=== PATIENT | female | born 1970 | race Caucasian/White ===

== ENCOUNTER → 2021-12-08 09:57 | Outpatient (BNVA) | payer OTHER, SELFPAY | PROVIDERS: PCP Physician Assistant Medical; Visit Provider Psychiatry & Neurology Neurology | DX: G47.00 Insomnia, unspecified (principal); R51.9 Headache, unspecified; G89.29 Other chronic pain | CPT/HCPCS: 99212 ==

== ENCOUNTER 2022-12-06 15:10 | Inpatient (IN) | payer OTHER, SELFPAY ==
--- NOTE | ~2022-12-06 | XR_ITS ---
EXAMINATION: XR CHEST CLINICAL INFORMATION: Chest pain, shortness of breath COMPARISON: None TECHNIQUE: Portable view of the chest was obtained. 4:00 PM FINDINGS: No significant abnormality is noted involving the heart, lungs, mediastinum, bony thorax or soft tissues. XR/XR chest 1V IMPRESSION: No evidence for acute process.
--- NOTE | 2022-12-06 15:13 | ECG_ITS ---
Test Reason : tacardya Blood Pressure : / mmHG Vent. Rate : 114 BPM Atrial Rate : 114 BPM P-R Int : 144 ms QRS Dur : 070 ms QT Int : 340 ms P-R-T Axes : 026 -06 002 degrees QTc Int : 468 ms Sinus tachycardia Minimal voltage criteria for LVH, may be normal variant ( R in aVL ) Borderline ECG No previous ECGs available Referred By: Generic ED Physician Electronically Signed By:BRENNAN EPPERSON MD
[2022-12-06 15:39] VITALS: BP 143/99; PULSE 130; RESP 18; TEMP 36.4; O2SAT 97; BMI 30.7
--- NOTE | 2022-12-06 15:39 | ED_ITS ---
HPI - General Adult General Chief complaint: ETOH/Substance Use <RYAN Heller - Last Filed: 12/06/22 15:46> Stated complaint: sob,chest pain <RYAN Heller - Last Filed: 12/06/22 15:46> Time Seen by Provider: 12/06/22 16:21 <RYAN Heller - Last Filed: 12/06/22 15:46> Source: patient <Lori Pérez MD - Last Filed: 12/06/22 20:41> Mode of arrival: ambulatory <Lori Pérez MD - Last Filed: 12/06/22 20:41> Limitations: no limitations <Lori Pérez MD - Last Filed: 12/06/22 20:41> History of Present Illness HPI narrative: Patient comes in the emergency room complaining of alcohol withdrawal symptoms. Patient states that she feels very shaky, anxious. Patient states that she has tried multiple times to stop drinking alcohol, last time she drank was over 2 days ago. Patient states that she has never had seizures secondary to alcohol withdrawal. Patient states that she is trying to become sober. Patient states that in the past she has been sober for 15 months. However, in 2019, her son committed suicide and since then she has has been drinking heavily, but keeps trying to stop drinking. Patient states that she would like information regarding detox, but at this time she is not ready to go back to work. Patient has been out of work since mid September until now due to a knee injury/surgery. Patient is due to return to work in couple weeks. Additionally, patient complaining of chest palpitations, chest tightness, and anxiety. <Lori Pérez MD - Last Filed: 12/06/22 20:41> Related Data Home medications: Home Medications Medication Instructions Recorded Confirmed acamprosate 333 mg tablet,delayed 666 mg PO TID 12/08/21 release celecoxib 200 mg capsule 200 mg PO BID 12/08/21 cyanocobalamin (vitamin B-12) 1,000 mcg PO DAILY 12/08/21 1,000 mcg tablet escitalopram oxalate 20 mg tablet 20 mg PO DAILY 12/08/21 omeprazole 20 mg capsule,delayed 20 mg PO DAILY 12/08/21 release topiramate 25 mg tablet 25 mg PO BEDTIME 12/08/21 zolpidem 10 mg tablet 10 mg PO BEDTIME PRN 12/08/21 Previous Rx's Medication Instructions Recorded cyclobenzaprine 10 mg tablet 10 mg PO BEDTIME #30 tabs 12/08/21 <RYAN Heller - Last Filed: 12/06/22 15:46> Allergies/adverse reactions: Allergies Allergy/AdvReac Type Severity Reaction Status Date / Time No Known Allergies Allergy Verified 12/08/21 10:22 <RYAN Heller - Last Filed: 12/06/22 15:46> Review of Systems Review of Systems: Constitutional : No Weight loss, No Fever, No Chills, No Night Sweats, no fatigue, complaining of alcohol withdrawal symptoms, jittery ENT/Mouth : No Hearing loss, No Ear Pain, No Nasal Congestion, No Sinus Pain, No Hoarseness, No sore throat, No Rhinorrhea, No Swallowing Difficulty Eyes: No Eye Pain, No Swelling, No Redness, No Foreign Body, No Discharge, No Vision Changes Cardiovascular : Complaining of mild chills pressure, palpitation, no shortness of breath Respiratory : Complaining of Cough, No Sputum, No Wheezing, No Smoke Exposure, No Dyspnea Gastrointestinal : No Nausea, No Vomiting, No Diarrhea, No Constipation, No abdominal Pain, No Hematochezia, No Melena Genitourinary : no irregular bleeding, No Dysuria, No Urinary Frequency, No Hematuria, No Urinary Incontinence, No Urgency, No Flank Pain, No Urinary Flow Changes, No Hesitancy Musculoskeletal : No joint pain, No Myalgias, No Joint Swelling Skin : No Skin Lesions, No rash Neuro : No Weakness, No Numbness, No Paresthesias, No Loss of Consciousness, No Dizziness, No Headache Psych : No Anxiety/Panic, No Depression, No SI/HI/AH/VH, No Social Issues, Heme/Lymph: No Bruising, No Bleeding,No Lymphadenopathy Endocrine : No Polyuria, No Polydipsia, No Temperature Intolerance <Lori Pérez MD - Last Filed: 12/06/22 20:41> [facility] Past Medical History Medical History: Medical History (Updated 12/06/22 @ 20:41 by Lori Pérez MD) Alcohol abuse Anemia Anisocoria Anxiety Depression GERD (gastroesophageal reflux disease) Hyperlipidemia Prediabetes <RYAN Heller - Last Filed: 12/06/22 15:46> Surgical History: Surgical History H/O tubal ligation <RYAN Heller - Last Filed: 12/06/22 15:46> Family History Family History: Family History Father Cancer Mother Arthritis <RYAN Heller - Last Filed: 12/06/22 15:46> Social History Social History: Social History Alcohol intake: current Alcohol intake frequency: holidays/special occasions only Patient Tobacco Use Status: Never used Tobacco Advance Directives: Yes Advance Directives on File: Yes Advance Directives Date on File: 12/06/22 <RYAN Heller - Last Filed: 12/06/22 15:46> Physical Exam ED Vital Signs: Vital Signs - 24 hr 12/06/22 15:39 12/06/22 16:37 12/06/22 18:00 Temperature 97.5 F 97.7 F 99.2 F Pulse Rate 130 H 84 98 Respiratory Rate 18 16 16 Blood Pressure 143/99 H 136/91 H 128/78 Pulse Oximetry 97 93 99 Oxygen Delivery Method Room Air Nasal Cannula Room Air Oxygen Flow Rate 2 12/06/22 19:56 Temperature 99.9 F Pulse Rate 124 H Respiratory Rate 16 Blood Pressure 144/91 H Pulse Oximetry 98 Oxygen Delivery Method Room Air Oxygen Flow Rate BMI result Body Mass Index 30.7 <RYAN Heller - Last Filed: 12/06/22 15:46> Vital Signs - 24 hr 12/06/22 15:39 12/06/22 16:37 12/06/22 18:00 Temperature 97.5 F 97.7 F 99.2 F Pulse Rate 130 H 84 98 Respiratory Rate 18 16 16 Blood Pressure 143/99 H 136/91 H 128/78 Pulse Oximetry 97 93 99 Oxygen Delivery Method Room Air Nasal Cannula Room Air Oxygen Flow Rate 2 12/06/22 19:56 Temperature 99.9 F Pulse Rate 124 H Respiratory Rate 16 Blood Pressure 144/91 H Pulse Oximetry 98 Oxygen Delivery Method Room Air Oxygen Flow Rate BMI result Body Mass Index 30.7 <Lori Pérez MD - Last Filed: 12/06/22 20:41> Const Other: Appearance: Alert. Oriented X3. No acute distress. A bit jittery Eyes: Pupils equal, round and reactive to light. ENT: Pharynx normal. Neck: Normal inspection. Neck supple. No lymph nodes noted. No crepitus CVS: Regular rhythm, tachycardic in the 120-130s Pulses normal. Normal S1 and S2 Respiratory: No respiratory distress. Breath sounds normal. No Wheezing. No rales Abdomen: Soft and nontender. No rigidity. No distention. Skin: Skin warm and dry. Normal skin color. Normal skin turgor. Extremities: No lower extremity edema. No Lacerations. No Rash Neuro: Oriented X 3. No motor deficit. No sensory deficit. Moving all extremities. No slurred speech. CN 2 through 12 grossly intact Psych: calm, cooperative, normal affect <Lori Pérez MD - Last Filed: 12/06/22 20:41> Course Course Course Narrative: This is an RME: Additional HPI, ROS, PE not included below will be deferred to primary provider. This is a 52-year-old female presenting to the emergency department with chest pain, palpitations, shortness of breath, nausea, diaphoresis, anxiety telling me she has alcohol withdrawal, patient tells me she drinks 2/5 of vodka a day, last drink 2 days ago she tells me she is trying to stop drinking. Patient has history of DTs no hx of seizures or hallucinations. Denies drugs, tobacco. Denies SI and HI. Denies hallucinations. On exam patient noted to be tachycardic. CIWA 8 Will speak to charge to try to get patient a bed <RYAN Heller - Last Filed: 12/06/22 15:46> Medications Administered Discontinued Medications Generic Name Dose Route Start Last Admin Trade Name Freq PRN Reason Stop Dose Admin Sodium Chloride 1,000 mls @ 999 mls/hr 12/06/22 15:45 12/06/22 19:06 Ns IV 12/06/22 16:45 Infused .Q1H1M VELVET Infusion Lorazepam 2 mg 12/06/22 15:41 12/06/22 16:31 Lorazepam 1 Mg Tablet PO 12/06/22 15:42 2 mg ONCE ONE Administration <RYAN Heller - Last Filed: 12/06/22 15:46> Medications Administered Discontinued Medications Generic Name Dose Route Start Last Admin Trade Name Suyapa PRN Reason Stop Dose Admin Sodium Chloride 1,000 mls @ 999 mls/hr 12/06/22 15:45 12/06/22 19:06 Ns IV 12/06/22 16:45 Infused .Q1H1M VELVET Infusion Lorazepam 2 mg 12/06/22 15:41 12/06/22 16:31 Lorazepam 1 Mg Tablet PO 12/06/22 15:42 2 mg ONCE ONE Administration <Lori Pérez MD - Last Filed: 12/06/22 20:41> Medical Decision Making Medical Decision Making [facility] Narrative: -patient given 2 mg p.o. lorazepam, started fluids -care team/asset recovery specialist consult has been requested -of patient's labs are pending -patient continues being tachycardic, jittery despite Ativan. Patient is actively withdrawing from alcohol. No seizures in the emergency room. No history of seizures. Patient was started on phenobarbital protocol, patient being admitted, Dr. Tong the patient. <Lori Pérez MD - Last Filed: 12/06/22 20:41> Differential Diagnosis Differential Diagnoses: The differential diagnosis associated with the presentation includes (Alcohol withdrawal, polysubstance withdrawal) <Lori Pérez MD - Last Filed: 12/06/22 20:41> Admission/Observation Consideration of admission/observation: Escalation of care including admission/observation considered <Lori Pérez MD - Last Filed: 12/06/22 20:41> Consult Healthcare Provider Management of the patient was discussed with: Hospitalist <Lori Pérez MD - Last Filed: 12/06/22 20:41> Lab Data [facility] Lab Attestation statement: I reviewed the patient's lab results. <Lori Pérez MD - Last Filed: 12/06/22 20:41> Result Diagrams: 12/06/22 16:27 12/06/22 16:27 <RYAN Heller - Last Filed: 12/06/22 15:46> Labs: Lab Results 12/06/22 12/06/22 12/06/22 Range/Units 16:19 16:27 16:27 WBC 4.8 (4.8-10.8) X10*3/uL RBC 4.14 L (4.20-5.50) X10*6/uL Hgb 12.0 (12.0-16.0) g/dl Hct 36.6 L (37.0-47.0) % MCV 88.4 (80.0-98.0) fL MCH 29.0 (27.0-33.0) pg MCHC 32.8 (31.0-35.0) g/dl RDW 17.2 H (11.0-16.0) % Plt Count 197 (160-400) X10*3/uL MPV 10.4 (9.4-12.3) fL Immature Gran % (Auto) 0.4 (0.0-0.4) % Neut % (Auto) 68.9 (45-73) % Lymph % (Auto) 12.0 L (20-40) % [place] % (Auto) 18.3 H (2-11) % Eos % (Auto) 0.0 (0-4) % Baso % (Auto) 0.4 (0-2) % Lymph # (Auto) 0.6 L (1.2-4.9) X10*3/uL [place] # (Auto) 0.9 (0.1-1.2) X10*3/uL Eos # (Auto) 0.0 (0.0-0.4) X10*3/uL Baso # (Auto) 0.0 (0.0-0.2) X10*3/uL Abs Immat Gran (auto) 0.02 (0.00-0.03) X10*3/uL Absolute Neuts (auto) 3.3 (2.0-8.3) x10*3/uL Absolute Nucleated RBC 0.000 (0.0-0.012) X10*3/uL Nucleated RBC % (auto) 0.0 (0.0-0.2) /100WBC Sodium 135 (135-145) mmol/L Potassium 3.7 (3.3-5.1) mmol/L Chloride 98 (96-108) mmol/L Carbon Dioxide 21 L (22-29) mmol/L Anion Gap 20 (12-20) BUN 21 H (9-16) mg/dL Creatinine 0.87 (0.5-1.4) mg/dL Estim Creat Clear Calc 89.5 Estimated GFR > 60 Random Glucose 111 (60-115) mg/dL Calcium 9.2 (8.4-10.2) mg/dL Magnesium 1.6 (1.6-2.6) mg/dL Total Bilirubin 0.9 (0.0-1.0) mg/dL AST 185 H (5-31) U/L ALT 79 H (0-31) U/L Alkaline Phosphatase 92 (39-117) U/L Troponin I High Sens (<3.5-17.0) ng/L B-Natriuretic Peptide (<100) pg/mL Total Protein 7.6 (6.5-8.0) g/dL Albumin 4.4 (3.5-5.0) g/dL Ethyl Alcohol < 10 mg/dL COVID-19 (TOBI) Positive A (Negative) COVID-19 Clin Com See Note 12/06/22 12/06/22 Range/Units 16:27 16:27 WBC (4.8-10.8) X10*3/uL RBC (4.20-5.50) X10*6/uL Hgb (12.0-16.0) g/dl Hct (37.0-47.0) % MCV (80.0-98.0) fL MCH (27.0-33.0) pg MCHC (31.0-35.0) g/dl RDW (11.0-16.0) % Plt Count (160-400) X10*3/uL MPV (9.4-12.3) fL Immature Gran % (Auto) (0.0-0.4) % Neut % (Auto) (45-73) % Lymph % (Auto) (20-40) % [place] % (Auto) (2-11) % Eos % (Auto) (0-4) % Baso % (Auto) (0-2) % Lymph # (Auto) (1.2-4.9) X10*3/uL [place] # (Auto) (0.1-1.2) X10*3/uL Eos # (Auto) (0.0-0.4) X10*3/uL Baso # (Auto) (0.0-0.2) X10*3/uL Abs Immat Gran (auto) (0.00-0.03) X10*3/uL Absolute Neuts (auto) (2.0-8.3) x10*3/uL Absolute Nucleated RBC (0.0-0.012) X10*3/uL Nucleated RBC % (auto) (0.0-0.2) /100WBC Sodium (135-145) mmol/L Potassium (3.3-5.1) mmol/L Chloride (96-108) mmol/L Carbon Dioxide (22-29) mmol/L Anion Gap (12-20) BUN (9-16) mg/dL Creatinine (0.5-1.4) mg/dL Estim Creat Clear Calc Estimated GFR Random Glucose (60-115) mg/dL Calcium (8.4-10.2) mg/dL Magnesium (1.6-2.6) mg/dL Total Bilirubin (0.0-1.0) mg/dL AST (5-31) U/L ALT (0-31) U/L Alkaline Phosphatase (39-117) U/L Troponin I High Sens < 3.5 (<3.5-17.0) ng/L B-Natriuretic Peptide 28 (<100) pg/mL Total Protein (6.5-8.0) g/dL Albumin (3.5-5.0) g/dL Ethyl Alcohol mg/dL COVID-19 (TOBI) (Negative) COVID-19 Clin Com <RYAN Heller - Last Filed: 12/06/22 15:46> Lab Results 12/06/22 12/06/22 12/06/22 Range/Units 16:19 16:27 16:27 WBC 4.8 (4.8-10.8) X10*3/uL RBC 4.14 L (4.20-5.50) X10*6/uL Hgb 12.0 (12.0-16.0) g/dl Hct 36.6 L (37.0-47.0) % MCV 88.4 (80.0-98.0) fL MCH 29.0 (27.0-33.0) pg MCHC 32.8 (31.0-35.0) g/dl RDW 17.2 H (11.0-16.0) % Plt Count 197 (160-400) X10*3/uL MPV 10.4 (9.4-12.3) fL Immature Gran % (Auto) 0.4 (0.0-0.4) % Neut % (Auto) 68.9 (45-73) % Lymph % (Auto) 12.0 L (20-40) % [place] % (Auto) 18.3 H (2-11) % Eos % (Auto) 0.0 (0-4) % Baso % (Auto) 0.4 (0-2) % Lymph # (Auto) 0.6 L (1.2-4.9) X10*3/uL [place] # (Auto) 0.9 (0.1-1.2) X10*3/uL Eos # (Auto) 0.0 (0.0-0.4) X10*3/uL Baso # (Auto) 0.0 (0.0-0.2) X10*3/uL Abs Immat Gran (auto) 0.02 (0.00-0.03) X10*3/uL Absolute Neuts (auto) 3.3 (2.0-8.3) x10*3/uL Absolute Nucleated RBC 0.000 (0.0-0.012) X10*3/uL Nucleated RBC % (auto) 0.0 (0.0-0.2) /100WBC Sodium 135 (135-145) mmol/L Potassium 3.7 (3.3-5.1) mmol/L Chloride 98 (96-108) mmol/L Carbon Dioxide 21 L (22-29) mmol/L Anion Gap 20 (12-20) BUN 21 H (9-16) mg/dL Creatinine 0.87 (0.5-1.4) mg/dL Estim Creat Clear Calc 89.5 Estimated GFR > 60 Random Glucose 111 (60-115) mg/dL Calcium 9.2 (8.4-10.2) mg/dL Magnesium 1.6 (1.6-2.6) mg/dL Total Bilirubin 0.9 (0.0-1.0) mg/dL AST 185 H (5-31) U/L ALT 79 H (0-31) U/L Alkaline Phosphatase 92 (39-117) U/L Troponin I High Sens (<3.5-17.0) ng/L B-Natriuretic Peptide (<100) pg/mL Total Protein 7.6 (6.5-8.0) g/dL Albumin 4.4 (3.5-5.0) g/dL Ethyl Alcohol < 10 mg/dL COVID-19 (TOBI) Positive A (Negative) COVID-19 Clin Com See Note 12/06/22 12/06/22 Range/Units 16:27 16:27 WBC (4.8-10.8) X10*3/uL RBC (4.20-5.50) X10*6/uL Hgb (12.0-16.0) g/dl Hct (37.0-47.0) % MCV (80.0-98.0) fL MCH (27.0-33.0) pg MCHC (31.0-35.0) g/dl RDW (11.0-16.0) % Plt Count (160-400) X10*3/uL MPV (9.4-12.3) fL Immature Gran % (Auto) (0.0-0.4) % Neut % (Auto) (45-73) % Lymph % (Auto) (20-40) % [place] % (Auto) (2-11) % Eos % (Auto) (0-4) % Baso % (Auto) (0-2) % Lymph # (Auto) (1.2-4.9) X10*3/uL [place] # (Auto) (0.1-1.2) X10*3/uL Eos # (Auto) (0.0-0.4) X10*3/uL Baso # (Auto) (0.0-0.2) X10*3/uL Abs Immat Gran (auto) (0.00-0.03) X10*3/uL Absolute Neuts (auto) (2.0-8.3) x10*3/uL Absolute Nucleated RBC (0.0-0.012) X10*3/uL Nucleated RBC % (auto) (0.0-0.2) /100WBC Sodium (135-145) mmol/L Potassium (3.3-5.1) mmol/L Chloride (96-108) mmol/L Carbon Dioxide (22-29) mmol/L Anion Gap (12-20) BUN (9-16) mg/dL Creatinine (0.5-1.4) mg/dL Estim Creat Clear Calc Estimated GFR Random Glucose (60-115) mg/dL Calcium (8.4-10.2) mg/dL Magnesium (1.6-2.6) mg/dL Total Bilirubin (0.0-1.0) mg/dL AST (5-31) U/L ALT (0-31) U/L Alkaline Phosphatase (39-117) U/L Troponin I High Sens < 3.5 (<3.5-17.0) ng/L B-Natriuretic Peptide 28 (<100) pg/mL Total Protein (6.5-8.0) g/dL Albumin (3.5-5.0) g/dL Ethyl Alcohol mg/dL COVID-19 (TOBI) (Negative) COVID-19 Clin Com <Lori Pérez MD - Last Filed: 12/06/22 20:41> Critical Care Time Critical Care Time Critical Care Time: Yes <Lori Pérez MD - Last Filed: 12/06/22 20:41> Total Critical Care Time: 60 <Lori Pérez MD - Last Filed: 12/06/22 20:41> Attestation: I have personally provided critical care time. Time includes review of lab data, radiology results, discussion with consultants, and monitoring for potential decompensation. Intervention performed as documented. <Lori Pérez MD - Last Filed: 12/06/22 20:41> Discharge Plan Discharge Clinical Impression: Alcohol withdrawal <RYAN Heller - Last Filed: 12/06/22 15:46> Patient Disposition: Admitted As Inpatient <RYAN Heller - Last Filed: 12/06/22 15:46> Prescriptions: No Action cyanocobalamin (vitamin B-12) 1,000 mcg tablet 1,000 mcg PO DAILY escitalopram oxalate 20 mg tablet 20 mg PO DAILY zolpidem 10 mg tablet 10 mg PO BEDTIME PRN celecoxib 200 mg capsule 200 mg PO BID topiramate 25 mg tablet 25 mg PO BEDTIME acamprosate 333 mg tablet,delayed release (DR/EC) 666 mg PO TID omeprazole 20 mg capsule,delayed release(DR/EC) 20 mg PO DAILY cyclobenzaprine 10 mg tablet 10 mg PO BEDTIME Qty: 30 0RF <RYAN Heller - Last Filed: 12/06/22 15:46> Interventions: [place]-Suicide Risk Severity Scale Last Done: 12/06/22 16:33 <RYAN Heller - Last Filed: 12/06/22 15:46>
[2022-12-06] MEDS: 0.9 % Sodium Chloride 1,000 ML 999 ML IV (16:28)
[2022-12-06] MEDS: LORazepam 1 MG TABLET 2 MG PO (16:31)
[2022-12-06 16:35] LABS: MANUAL DIFF FLAG NO
[2022-12-06 16:37] VITALS: BP 136/91; PULSE 84; RESP 16; TEMP 36.5; O2SAT 93
[2022-12-06 16:37] LABS: Basophils Percent Auto 0.4 % (0-2); Hematocrit 36.6 % (37.0-47.0); Imm Gran Abs Auto 0.02 X10*3/uL (0.00-0.03); Imm Gran Pct Auto 0.4 % (0.0-0.4); Lymphocytes Absolute Auto 0.6 X10*3/uL (1.2-4.9); Mean Corpuscular HGB Conc 32.8 g/dl (31.0-35.0); Mean Corpuscular Volume 88.4 fL (80.0-98.0); Mean Platelet Volume 10.4 fL (9.4-12.3); Monocytes Absolute Auto 0.9 X10*3/uL (0.1-1.2); Monocytes Percent Auto 18.3 % (2-11); Neutrophils Absolute Auto 3.3 x10*3/uL (2.0-8.3); Neutrophils Percent Auto 68.9 % (45-73); Platelet Count 197 X10*3/uL (160-400); Red Blood Count 4.14 X10*6/uL (4.20-5.50); Red Cell Distribution Width 17.2 % (11.0-16.0); White Blood Count 4.8 X10*3/uL (4.8-10.8)
[2022-12-06 16:47] LABS: COVID-19 Test Positive (Negative); IDNOW Serial# 9DB6401D
[2022-12-06 16:57] LABS: Alanine Aminotransferase 79 U/L (0-31); Albumin Level 4.4 g/dL (3.5-5.0); Alkaline Phosphatase 92 U/L (39-117); Anion Gap 20 (12-20); Aspartate Amino Transferase 185 U/L (5-31); Bilirubin Total 0.9 mg/dL (0.0-1.0); Blood Urea Nitrogen 21 mg/dL (9-16); Calcium 9.2 mg/dL (8.4-10.2); Carbon Dioxide 21 mmol/L (22-29); Chloride 98 mmol/L (96-108); Creatinine Clr Calc Pharmacy 89.5; Estimated Glomerular Filt Rate > 60; Ethanol < 10 mg/dL; Glucose Random 111 mg/dL (60-115); Magnesium 1.6 mg/dL (1.6-2.6); Potassium 3.7 mmol/L (3.3-5.1); Sodium 135 mmol/L (135-145); Total Protein 7.6 g/dL (6.5-8.0)
[2022-12-06 17:04] LABS: B Type Natriuretic Peptide 28 pg/mL (<100)
[2022-12-06 17:11] LABS: Troponin-I High Sensitivity < 3.5 ng/L (<3.5-17.0)
[2022-12-06 18:00] VITALS: BP 128/78; PULSE 98; RESP 16; TEMP 37.3; O2SAT 99
--- NOTE | 2022-12-06 19:35 | PC.NURSE ---
Patient alert and oriented x 3. 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 Covid +.
[2022-12-06 19:56] VITALS: BP 144/91; PULSE 124; RESP 16; TEMP 37.7; O2SAT 98
[2022-12-06] MEDS: PHENobarbitaL sodium 130 MG/ML IM ONCE 306 MG IM (20:49)
[2022-12-06 21:04] VITALS: BP 151/90; PULSE 113; RESP 20; TEMP 37.2; O2SAT 99
[2022-12-06 21:12] LABS: Appearance Urine Clear; Color Urine Dark Yellow; Glucose Urine UA Negative (Negative); Leukocyte Esterase Urine Trace (Negative); Nitrite Urine Negative (Negative); PH 5.5 (5.0-9.0); Specific Gravity - Urine >= 1.030 (1.005-1.025); UMIC TRIGGER UACC YES; Urine Blood Negative (Negative); Urine Ketones 80 mg/dL (Negative); Urine Protein 30 (1+) mg/dL (Neg-Trace)
--- NOTE | 2022-12-06 21:14 | MHC.RECOVSUP ---
? Reason for consult:ETOH o? Current location:[id number]? o? Identified substance use concern:? -? Withdrawal -? Support ? Intervention: o? Community resources provided o? Harm reduction discussion ? Plan:Admitted ? Additional information:Rc met with pt and discussed ATS services/ Rc services. Pt is being admitted. [facility] provided recovery resources.
[2022-12-06 21:20] LABS: Bacteria Urine 1+ (None Seen); Hyaline Casts Urine 0-2 /LPF (0-2); WBC Urine 0-5 /HPF (0-5)
[2022-12-06 21:25] LABS: Amphetamine Screen Urine Not Detected (Not Detect); Barbiturates, Urine Not Detected (Not Detect); Benzodiazepines Screen Urine Not Detected (Not Detect); Cannabinoid Screen Urine Not Detected (Not Detect); Cocaine Screen Urine Not Detected (Not Detect); Fentanyl, urine Not Detected (Not Detect); Opiate Screen Urine Not Detected (Not Detect); Phencyclidine Screen Urine Not Detected (Not Detect)
[2022-12-06] MEDS: PHENobarbitaL sodium 130 MG/ML VIAL IM Q3Hx2 230 MG IM (23:38)
[2022-12-06 23:51] VITALS: BP 150/85; PULSE 105; RESP 16; TEMP 37.3; O2SAT 97
--- NOTE | 2022-12-06 23:56 | P.HPHOSP_ITS ---
History of Present Illness Date of Service: 12/06/22 Chief Complaint: alcohol withdrawal this is a 52-year-old female past medical history of alcohol abuse, anxiety depression, hyperlipidemia, GERD presents to the hospital with complaints of alcohol abuse presents to the hospital with complaints of alcohol withdrawal. Patient reports that she stopped drinking about a day ago, she is also complaining of cough, feeling generally unwell, no shortness of breath, reports fever, chills, nausea, no vomiting, no abdominal pain, no diarrhea constipation, no urinary symptoms and no lower extremity edema. On arrival to the ED patient found to have heart rate of 130, sinus rhythm with no other abnormal findings Labs are significant for WBC count 3.4, hemoglobin of 12.0, AST of 185, ALT 7, urine positive for leukocyte Estrace and some WBC, chest x-ray shows no evidence of acute process found to be COVID-19 positive Review of Systems Review of Systems: Yes all other systems are reviewed and are negative [facility] Medical History Alcohol abuse Anemia Anisocoria Anxiety Depression GERD (gastroesophageal reflux disease) Hyperlipidemia Prediabetes Family History Father Cancer Mother Arthritis Surgical History H/O tubal ligation Social History Alcohol intake: current Alcohol intake frequency: holidays/special occasions only Patient Tobacco Use Status: Never used Tobacco Advance Directives: Yes Advance Directives on File: Yes Advance Directives Date on File: 12/06/22 Nutrition Risks: No Nutritional Risk Meds Allergies Allergy/AdvReac Type Severity Reaction Status Date / Time No Known Allergies Allergy Verified 12/08/21 10:22 Active Medications: Current Medications Pharmacy Consult (Consult Rx Etoh Phenob Im/Po) 1 each MISCELLANE ONCE PRN; Protocol PRN Reason: Consult order Phenobarbital (Phenobarbital 15 Mg Tablet) 45 mg PO BID [facility]; Protocol Stop: 12/08/22 21:01 Phenobarbital (Phenobarbital 30 Mg Tablet) 30 mg PO BID [facility]; Protocol Stop: 12/10/22 21:01 Phenobarbital (Phenobarbital 30 Mg Tablet) 30 mg PO DAILY [facility]; Protocol Stop: 12/12/22 09:01 Phenobarbital Sodium (Phenobarbital Sodium 130 Mg/Ml Vial Im Q3hx2) 230 mg IM Q3H [facility]; Protocol Stop: 12/07/22 03:01 Last Admin: 12/06/22 23:38 Dose: 230 mg Home Medications Medication Instructions Recorded Confirmed Last Taken Type cyanocobalamin (vitamin B-12) 1,000 mcg PO DAILY 12/08/21 12/06/22 Unknown History 1,000 mcg tablet omeprazole 20 mg capsule,delayed 20 mg PO DAILY 12/08/21 12/06/22 Unknown History release zolpidem 10 mg tablet 10 mg PO BEDTIME PRN Insomnia 12/08/21 12/06/22 Unknown History folic acid 1 mg tablet 1 tab PO DAILY 12/06/22 12/06/22 Unknown History meloxicam 15 mg tablet 1 tab PO DAILY 12/06/22 12/06/22 Unknown History thiamine HCl (vitamin B1) 100 mg 1 tab PO DAILY 12/06/22 12/06/22 Unknown History tablet Physical Exam Vital Signs and Narrative: Vital Signs: Last Vital Signs Temp 99.2 F 12/06/22 23:51 Pulse 105 H 12/06/22 23:51 Resp 16 12/06/22 23:51 BP 150/85 H 12/06/22 23:51 Pulse Ox 97 12/06/22 23:51 O2 Del Method 12/06/22 23:51 O2 Flow Rate 2 12/06/22 16:37 BMI result Body Mass Index 30.7 Const: General: cooperative and no acute distress Orientation/consciousness: patient oriented x3 Eyes: General: appearance normal, both eyes and all related structures Resp: Effort & Inspection: normal respiratory effort Auscultation: clear to auscultation bilaterally Cardio: Rate: regular rate Rhythm: regular rhythm GI: Palpation (GI): Soft to palpation Auscultation: normal bowel sounds Skin: General skin exam: no rashes or lesions noted Neuro: General: patient oriented x3 Cognition (Neuro): normal cognition Extrem: General: Yes normal to inspection and Yes no pedal edema Results Labs 12/06/22 16:27 12/06/22 16:27 Labs: Laboratory Results - last 24 hr 12/06/22 12/06/22 12/06/22 16:19 16:27 16:27 MCV 88.4 MCH 29.0 MCHC 32.8 RDW 17.2 H Plt Count 197 MPV 10.4 Immature Gran % (Auto) 0.4 Neut % (Auto) 68.9 Lymph % (Auto) 12.0 L [place] % (Auto) 18.3 H Eos % (Auto) 0.0 Baso % (Auto) 0.4 Lymph # (Auto) 0.6 L [place] # (Auto) 0.9 Eos # (Auto) 0.0 Baso # (Auto) 0.0 Abs Immat Gran (auto) 0.02 Absolute Neuts (auto) 3.3 Absolute Nucleated RBC 0.000 Nucleated RBC % (auto) 0.0 Anion Gap 20 Estim Creat Clear Calc 89.5 Estimated GFR > 60 Random Glucose 111 Calcium 9.2 Magnesium 1.6 Total Bilirubin 0.9 AST 185 H ALT 79 H Alkaline Phosphatase 92 Troponin I High Sens B-Natriuretic Peptide Total Protein 7.6 Albumin 4.4 Urine Color Urine Appearance Urine pH Ur Specific [place] Urine Protein Urine Glucose (UA) Urine Ketones Urine Blood Urine Nitrite Ur Leukocyte Esterase Urine RBC Urine WBC Ur Squamous Epith Cells Urine Bacteria Hyaline Casts Urine Opiates Screen Urine Fentanyl Screen Ur Barbiturates Screen Ur Phencyclidine Scrn Ur Amphetamines Screen U Benzodiazepines Scrn Urine Cocaine Screen U Marijuana (THC) Screen Ethyl Alcohol < 10 COVID-19 (TOBI) Positive A COVID-19 Clin Com See Note 12/06/22 12/06/22 12/06/22 16:27 16:27 21:07 MCV MCH MCHC RDW Plt Count MPV Immature Gran % (Auto) Neut % (Auto) Lymph % (Auto) [place] % (Auto) Eos % (Auto) Baso % (Auto) Lymph # (Auto) [place] # (Auto) Eos # (Auto) Baso # (Auto) Abs Immat Gran (auto) Absolute Neuts (auto) Absolute Nucleated RBC Nucleated RBC % (auto) Anion Gap Estim Creat Clear Calc Estimated GFR Random Glucose Calcium Magnesium Total Bilirubin AST ALT Alkaline Phosphatase Troponin I High Sens < 3.5 B-Natriuretic Peptide 28 Total Protein Albumin Urine Color Dark Yellow Urine Appearance Clear Urine pH 5.5 Ur Specific [place] >= 1.030 H Urine Protein 30 (1+) H Urine Glucose (UA) Negative Urine Ketones 80 Urine Blood Negative Urine Nitrite Negative Ur Leukocyte Esterase Trace H Urine RBC 6-10 H Urine WBC 0-5 Ur Squamous Epith Cells 3-5 Urine Bacteria 1+ Hyaline Casts 0-2 Urine Opiates Screen Urine Fentanyl Screen Ur Barbiturates Screen Ur Phencyclidine Scrn Ur Amphetamines Screen U Benzodiazepines Scrn Urine Cocaine Screen U Marijuana (THC) Screen Ethyl Alcohol COVID-19 (TOBI) COVID-19 [email or web address] Com 12/06/22 21:07 MCV MCH MCHC RDW Plt Count MPV Immature Gran % (Auto) Neut % (Auto) Lymph % (Auto) [place] % (Auto) Eos % (Auto) Baso % (Auto) Lymph # (Auto) [place] # (Auto) Eos # (Auto) Baso # (Auto) Abs Immat Gran (auto) Absolute Neuts (auto) Absolute Nucleated RBC Nucleated RBC % (auto) Anion Gap Estim Creat Clear Calc Estimated GFR Random Glucose Calcium Magnesium Total Bilirubin AST ALT Alkaline Phosphatase Troponin I High Sens B-Natriuretic Peptide Total Protein Albumin Urine Color Urine Appearance Urine pH Ur Specific [place] Urine Protein Urine Glucose (UA) Urine Ketones Urine Blood Urine Nitrite Ur Leukocyte Esterase Urine RBC Urine WBC Ur Squamous Epith Cells Urine Bacteria Hyaline Casts Urine Opiates Screen Not Detected Urine Fentanyl Screen Not Detected Ur Barbiturates Screen Not Detected Ur Phencyclidine Scrn Not Detected Ur Amphetamines Screen Not Detected U Benzodiazepines Scrn Not Detected Urine Cocaine Screen Not Detected U Marijuana (THC) Screen Not Detected Ethyl Alcohol COVID-19 (TOBI) COVID-19 Clin Com Imaging Radiologist's Impressions: Impressions Chest X-Ray 12/06/22 15:57 IMPRESSION: No evidence for acute process. Assessment and Plan (1) Alcohol withdrawal: Status: Acute (2) Alcohol abuse: Status: Acute (3) COVID-19 virus infection: Status: Acute Plan 52-year-old female with past medical history of alcohol abuse presents the hospital cough withdrawal. # Alcohol abuse With alcohol withdrawal - will treat with phenobarb protocol - thiamine and folic acid - monitor respiratory status - consult care team # COVID-19 infection - generalized weakness, no hypoxia - symptomatic treatment DVT prophylaxis: Lovenox Time Spent With Patient Time: Total time managing care of this patient today ____ minutes. Quality Stroke Does the patient have a stroke diagnosis?: No VTE Prior VTE?: No VTE Risk Level:: Medical - moderate - high VTE Device Contraindication: Treatment Not Indicated VTE Drug Contraindication: N/A - Med Ordered
[2022-12-07] VITALS (8 sets, daily range): BP systolic 118–149; BP diastolic 73–97; PULSE 76–130; RESP 16–22; TEMP 36.9–37.9; O2SAT 95–97
[2022-12-07] MEDS: Zolpidem Tartrate 5 MG TABLET PO (01:00)
[2022-12-07] MEDS: Enoxaparin Sodium 40 MG/0.4 ML SYRINGE SUBCUT (01:00)
[2022-12-07] MEDS: 0.9 % Sodium Chloride Flush 3 ML SYRINGE IVFLUSH ×3 (01:03→17:54)
--- NOTE | 2022-12-07 02:43 | PC.NURSE ---
Patient alert and oriented x 3. independent. Patient c/o hasn't slept in [address] Paz ordered ambien 5mg po for sleep. Patient on a phenobarb taper for CIWA. Patient denies any pain, sob, and dizziness. tele: sinus rythym. Patient wants help to detox and stop drinking.
--- NOTE | 2022-12-07 02:58 | PC.NURSE ---
report received from Angela hernadez
[2022-12-07] MEDS: PHENobarbitaL sodium 130 MG/ML VIAL IM Q3Hx2 230 MG IM (05:26)
[2022-12-07 06:44] LABS: Basophils Percent Auto 0.6 % (0-2); Eosinophils Percent Auto 0.3 % (0-4); Hematocrit 33.8 % (37.0-47.0); Hemoglobin 11.1 g/dl (12.0-16.0); Imm Gran Abs Auto 0.02 X10*3/uL (0.00-0.03); Imm Gran Pct Auto 0.6 % (0.0-0.4); Lymphocytes Absolute Auto 0.9 X10*3/uL (1.2-4.9); Lymphocytes Percent Auto 26.9 % (20-40); MANUAL DIFF FLAG SCAN; Mean Corpuscular HGB Conc 32.8 g/dl (31.0-35.0); Mean Corpuscular Hemoglobin 29.6 pg (27.0-33.0); Mean Corpuscular Volume 90.1 fL (80.0-98.0); Mean Platelet Volume 10.7 fL (9.4-12.3); Monocytes Absolute Auto 0.8 X10*3/uL (0.1-1.2); Monocytes Percent Auto 23.7 % (2-11); Neutrophils Absolute Auto 1.6 x10*3/uL (2.0-8.3); Neutrophils Percent Auto 47.9 % (45-73); Platelet Count 157 X10*3/uL (160-400); Red Blood Count 3.75 X10*6/uL (4.20-5.50); Red Cell Distribution Width 17.1 % (11.0-16.0); SCAN SMEAR FLAG 1; White Blood Count 3.4 X10*3/uL (4.8-10.8)
[2022-12-07 06:52] LABS: Anion Gap 16 (12-20); Blood Urea Nitrogen 17 mg/dL (9-16); Calcium 8.7 mg/dL (8.4-10.2); Carbon Dioxide 22 mmol/L (22-29); Chloride 103 mmol/L (96-108); Creatinine Clr Calc Pharmacy 103.8; Estimated Glomerular Filt Rate > 60; Glucose Random 96 mg/dL (60-115); Potassium 3.9 mmol/L (3.3-5.1); Sodium 137 mmol/L (135-145)
[2022-12-07 07:24] LABS: SLIDE REVIEW VERIFIED
[2022-12-07] MEDS: Thiamine HCL 100 MG TABLET PO (08:45)
[2022-12-07] MEDS: Folic Acid 1 MG TABLET PO (08:45)
[2022-12-07] MEDS: PHENobarbitaL 15 MG TABLET 45 MG PO ×2 (08:45→20:08)
--- NOTE | 2022-12-07 08:51 | PC.NURSE ---
Pt alert and oriented, resp even and unlabored. Sinus tach on monitor in 130's. Medicated per the DEC. Pt denies any pain, only reporting a cough at this time. Awaiting bed assignment.
--- NOTE | 2022-12-07 09:55 | P.PNIM_ITS ---
Subjective Subjective Date of Service: 12/07/22 Interval History: seen in follow-up for alcohol withdrawal and then seeking detox. She tells me that she drink rather heavily, she presently has tremors, tachycardia to up to 130 no psychomotor agitation Review of Systems tremors Physical Exam Vital Signs: Vital Signs: Last Vital Signs Temp 99.1 F 12/07/22 08:48 Pulse 130 H 12/07/22 08:48 Resp 16 12/07/22 08:48 BP 141/79 H 12/07/22 08:48 Pulse Ox 96 12/07/22 08:48 O2 Del Method 12/07/22 08:48 O2 Flow Rate 2 12/06/22 16:37 BMI result Body Mass Index 30.7 Const: Other: Appearance: Alert. Oriented X3. No acute distress. A bit jittery CVS: Regular rhythm, tachycardic in the 120-130s Pulses normal. Normal S1 and S2 Respiratory: No respiratory distress. Breath sounds normal. No Wheezing. No rales Abdomen: Soft and nontender. No rigidity. No distention. Skin: Skin warm and dry. Normal skin color. Normal skin turgor. Extremities: No lower extremity edema. No Lacerations. No Rash Neuro: Oriented X 3. No motor deficit. tremors in hands Psych: calm, cooperative, normal affect Objective Data Active Medications Acetaminophen (Acetaminophen 325 Mg Tablet) 650 mg PO Q6H PRN PRN Reason: Pain, Mild (Pain Scale 1-3) Enoxaparin Sodium (Enoxaparin Sodium 40 Mg/0.4 Ml Syringe) 40 mg SUBCUT Q24H [facility] Last Admin: 12/07/22 01:00 Dose: 40 mg Documented By: ESTRADA Folic Acid (Folic Acid 1 Mg Tablet) 1 mg PO DAILY [facility] Last Admin: 12/07/22 08:45 Dose: 1 mg Documented By: LYNDA Ondansetron HCl (Ondansetron Hcl 4 Mg/2 Ml Vial) 4 mg IVPUSH Q8H PRN PRN Reason: Nausea and Vomiting Pharmacy Consult (Consult Rx Etoh Phenob Im/Po) 1 each MISCELLANE ONCE PRN; Protocol PRN Reason: Consult order Phenobarbital (Phenobarbital 15 Mg Tablet) 45 mg PO BID [facility]; Protocol Stop: 12/08/22 21:01 Last Admin: 12/07/22 08:45 Dose: 45 mg Documented By: LYNDA Phenobarbital (Phenobarbital 30 Mg Tablet) 30 mg PO BID [facility]; Protocol Stop: 12/10/22 21:01 Phenobarbital (Phenobarbital 30 Mg Tablet) 30 mg PO DAILY [facility]; Protocol Stop: 12/12/22 09:01 Sodium Chloride (0.9 % Sodium Chloride Flush 3 Ml Syringe) 3 ml IVFLUSH QSHIFT [facility] Last Admin: 12/07/22 08:47 Dose: 3 ml Documented By: LYNDA Thiamine HCl (Thiamine Hcl 100 Mg Tablet) 100 mg PO DAILY [facility] Last Admin: 12/07/22 08:45 Dose: 100 mg Documented By: LYNDA Zolpidem Tartrate (Zolpidem Tartrate 5 Mg Tablet) 5 mg PO BEDTIME PRN PRN Reason: Insomnia Last Admin: 12/07/22 01:00 Dose: 5 mg Documented By: ESTRADA Labs 12/07/22 05:54 12/07/22 05:54 Labs: Laboratory Results - last 24 hr 12/06/22 12/06/22 12/06/22 16:19 16:27 16:27 MCV 88.4 MCH 29.0 MCHC 32.8 RDW 17.2 H Plt Count 197 MPV 10.4 Immature Gran % (Auto) 0.4 Neut % (Auto) 68.9 Lymph % (Auto) 12.0 L [place] % (Auto) 18.3 H Eos % (Auto) 0.0 Baso % (Auto) 0.4 Lymph # (Auto) 0.6 L [place] # (Auto) 0.9 Eos # (Auto) 0.0 Baso # (Auto) 0.0 Abs Immat Gran (auto) 0.02 Absolute Neuts (auto) 3.3 Absolute Nucleated RBC 0.000 Nucleated RBC % (auto) 0.0 Smear Tech's Comments Anion Gap 20 Estim Creat Clear Calc 89.5 Estimated GFR > 60 Random Glucose 111 Calcium 9.2 Magnesium 1.6 Total Bilirubin 0.9 AST 185 H ALT 79 H Alkaline Phosphatase 92 Troponin I High Sens B-Natriuretic Peptide Total Protein 7.6 Albumin 4.4 Urine Color Urine Appearance Urine pH Ur Specific [place] Urine Protein Urine Glucose (UA) Urine Ketones Urine Blood Urine Nitrite Ur Leukocyte Esterase Urine RBC Urine WBC Ur Squamous Epith Cells Urine Bacteria Hyaline Casts Urine Opiates Screen Urine Fentanyl Screen Ur Barbiturates Screen Ur Phencyclidine Scrn Ur Amphetamines Screen U Benzodiazepines Scrn Urine Cocaine Screen U Marijuana (THC) Screen Ethyl Alcohol < 10 COVID-19 (TOBI) Positive A COVID-19 Clin Com See Note 12/06/22 12/06/22 12/06/22 16:27 16:27 21:07 MCV MCH MCHC RDW Plt Count MPV Immature Gran % (Auto) Neut % (Auto) Lymph % (Auto) [place] % (Auto) Eos % (Auto) Baso % (Auto) Lymph # (Auto) [place] # (Auto) Eos # (Auto) Baso # (Auto) Abs Immat Gran (auto) Absolute Neuts (auto) Absolute Nucleated RBC Nucleated RBC % (auto) Smear Tech's Comments Anion Gap Estim Creat Clear Calc Estimated GFR Random Glucose Calcium Magnesium Total Bilirubin AST ALT Alkaline Phosphatase Troponin I High Sens < 3.5 B-Natriuretic Peptide 28 Total Protein Albumin Urine Color Dark Yellow Urine Appearance Clear Urine pH 5.5 Ur Specific [place] >= 1.030 H Urine Protein 30 (1+) H Urine Glucose (UA) Negative Urine Ketones 80 Urine Blood Negative Urine Nitrite Negative Ur Leukocyte Esterase Trace H Urine RBC 6-10 H Urine WBC 0-5 Ur Squamous Epith Cells 3-5 Urine Bacteria 1+ Hyaline Casts 0-2 Urine Opiates Screen Urine Fentanyl Screen Ur Barbiturates Screen Ur Phencyclidine Scrn Ur Amphetamines Screen U Benzodiazepines Scrn Urine Cocaine Screen U Marijuana (THC) Screen Ethyl Alcohol COVID-19 (TOBI) COVID-19 Clin Com 12/06/22 12/07/22 12/07/22 21:07 05:54 05:54 MCV 90.1 MCH 29.6 MCHC 32.8 RDW 17.1 H Plt Count 157 L MPV 10.7 Immature Gran % (Auto) 0.6 H Neut % (Auto) 47.9 Lymph % (Auto) 26.9 [place] % (Auto) 23.7 H Eos % (Auto) 0.3 Baso % (Auto) 0.6 Lymph # (Auto) 0.9 L [place] # (Auto) 0.8 Eos # (Auto) 0.0 Baso # (Auto) 0.0 Abs Immat Gran (auto) 0.02 Absolute Neuts (auto) 1.6 L Absolute Nucleated RBC 0.000 Nucleated RBC % (auto) 0.0 Smear Tech's Comments VERIFIED Anion Gap 16 Estim Creat Clear Calc 103.8 Estimated GFR > 60 Random Glucose 96 Calcium 8.7 Magnesium Total Bilirubin AST ALT Alkaline Phosphatase Troponin I High Sens B-Natriuretic Peptide Total Protein Albumin Urine Color Urine Appearance Urine pH Ur Specific [place] Urine Protein Urine Glucose (UA) Urine Ketones Urine Blood Urine Nitrite Ur Leukocyte Esterase Urine RBC Urine WBC Ur Squamous Epith Cells Urine Bacteria Hyaline Casts Urine Opiates Screen Not Detected Urine Fentanyl Screen Not Detected Ur Barbiturates Screen Not Detected Ur Phencyclidine Scrn Not Detected Ur Amphetamines Screen Not Detected U Benzodiazepines Scrn Not Detected Urine Cocaine Screen Not Detected U Marijuana (THC) Screen Not Detected Ethyl Alcohol COVID-19 (TOBI) COVID-19 Clin Com Assessment and Plan (1) COVID-19 virus infection: Status: Acute (2) Alcohol withdrawal: Status: Acute Plan 52-year-old female with past medical history of alcohol abuse presents the hospital cough withdrawal. # Alcohol use disorder With alcohol withdrawal -treat with phenobarb protocol - thiamine and folic acid - monitor respiratory status - consult care team # COVID-19 infection - generalized weakness, no hypoxia - symptomatic treatment DVT prophylaxis: Lovenox need for inpatient: Ongoing treatment with alcohol withdrawal and monitoring for response given ongoing tachycardia and tremors this can all be managed in less acute setting. Time Spent With Patient Time: Total time managing care of this patient today ____ minutes. Quality Stroke Does the patient have a stroke diagnosis?: No VTE Prior VTE?: No VTE Risk Level:: Medical - moderate - high VTE Device Contraindication: Treatment Not Indicated VTE Drug Contraindication: N/A - Med Ordered
--- NOTE | 2022-12-07 12:43 | MHC.CM.PN ---
pt has covid lives with hhusband is covid vax x 3 has own ride home plan home no servceis
[2022-12-07] MEDS: Cyanocobalamin (Vitamin B-12) 1,000 MCG TABLET 1000 MCG PO (13:06)
[2022-12-07] MEDS: Omeprazole 20 MG CAPSULE.DR PO (13:07)
--- NOTE | 2022-12-07 13:34 | PC.NURSE ---
Alert and oriented, resp even and unlabored. Continues to rest quietly in bed with call light in place. Pt denies any pain or discomfort at this time. Awaiting bed assignment.
[2022-12-07] MEDS: guaiFENesin 100 MG/5 ML LIQUID PO (20:21)
--- NOTE | 2022-12-07 21:25 | PC.NURSE ---
Bedside report given to RN. PT in room 476, transported by transporter and this senior writer.
[2022-12-08] MEDS: Zolpidem Tartrate 5 MG TABLET 10 MG PO ×2 (00:29→22:21)
[2022-12-08] MEDS: Enoxaparin Sodium 40 MG/0.4 ML SYRINGE SUBCUT (00:29)
[2022-12-08] MEDS: 0.9 % Sodium Chloride Flush 3 ML SYRINGE IVFLUSH ×3 (00:30→16:04)
[2022-12-08 04:00] VITALS: BP 144/79; PULSE 101; RESP 20; TEMP 37.1; O2SAT 98
[2022-12-08 08:00] VITALS: BP 124/75; PULSE 95; RESP 20; TEMP 36.7; O2SAT 96
[2022-12-08] MEDS: PHENobarbitaL 15 MG TABLET 45 MG PO ×2 (08:51→20:03)
[2022-12-08] MEDS: Folic Acid 1 MG TABLET PO (08:51)
[2022-12-08] MEDS: Thiamine HCL 100 MG TABLET PO (08:51)
[2022-12-08] MEDS: guaiFENesin 100 MG/5 ML LIQUID PO (09:03)
[2022-12-08] MEDS: Cyanocobalamin (Vitamin B-12) 1,000 MCG TABLET 1000 MCG PO (09:03)
--- NOTE | 2022-12-08 09:22 | P.PNIM_ITS ---
Subjective Subjective Date of Service: 12/08/22 Interval History: seen in follow-up for alcohol withdrawal and then seeking detox. calm, no tremors Review of Systems tremors Physical Exam Const: Other: Appearance: Alert. Oriented X3. No acute distress. A bit jittery CVS: Regular rhythm, tachycardic in the 120-130s Pulses normal. Normal S1 and S2 Respiratory: No respiratory distress. Breath sounds normal. No Wheezing. No rales Abdomen: Soft and nontender. No rigidity. No distention. Skin: Skin warm and dry. Normal skin color. Normal skin turgor. Extremities: No lower extremity edema. No Lacerations. No Rash Neuro: Oriented X 3. No motor deficit. tremors in hands Psych: calm, cooperative, normal affect Objective Data Active Medications Acetaminophen (Acetaminophen 325 Mg Tablet) 650 mg PO Q6H PRN PRN Reason: Pain, Mild (Pain Scale 1-3) Cyanocobalamin (Cyanocobalamin (Vitamin B-12) 1,000 Mcg Tablet) 1,000 mcg PO DAILY [facility] Last Admin: 12/09/22 08:42 Dose: 1,000 mcg Documented By: WISAM Enoxaparin Sodium (Enoxaparin Sodium 40 Mg/0.4 Ml Syringe) 40 mg SUBCUT Q24H [facility] Last Admin: 12/09/22 00:44 Dose: 40 mg Documented By: DONITA Folic Acid (Folic Acid 1 Mg Tablet) 1 mg PO DAILY [facility] Last Admin: 12/09/22 08:42 Dose: 1 mg Documented By: WISAM Guaifenesin (Guaifenesin 100 Mg/5 Ml Liquid) 5 ml PO Q4H PRN PRN Reason: Cough Last Admin: 12/08/22 09:03 Dose: 5 ml Documented By: ALEX Omeprazole (Omeprazole 20 Mg Capsule.) 20 mg PO DAILY@0630 [facility] Last Admin: 12/09/22 06:17 Dose: 20 mg Documented By: DONITA Ondansetron HCl (Ondansetron Hcl 4 Mg/2 Ml Vial) 4 mg IVPUSH Q8H PRN PRN Reason: Nausea and Vomiting Pharmacy Consult (Consult Rx Etoh Phenob Im/Po) 1 each MISCELLANE ONCE PRN; Protocol PRN Reason: Consult order Phenobarbital (Phenobarbital 30 Mg Tablet) 30 mg PO BID [facility]; Protocol Stop: 12/10/22 21:01 Last Admin: 12/09/22 08:42 Dose: 30 mg Documented By: WISAM Phenobarbital (Phenobarbital 30 Mg Tablet) 30 mg PO DAILY [facility]; Protocol Stop: 12/12/22 09:01 Sodium Chloride (0.9 % Sodium Chloride Flush 3 Ml Syringe) 3 ml IVFLUSH QSHIFT [facility] Last Admin: 12/09/22 08:42 Dose: 3 ml Documented By: WISAM Thiamine HCl (Thiamine Hcl 100 Mg Tablet) 100 mg PO DAILY [facility] Last Admin: 12/09/22 08:42 Dose: 100 mg Documented By: WISAM Zolpidem Tartrate (Zolpidem Tartrate 5 Mg Tablet) 5 mg PO BEDTIME PRN PRN Reason: Insomnia Last Admin: 12/07/22 01:00 Dose: 5 mg Documented By: ESTRADA Zolpidem Tartrate (Zolpidem Tartrate 5 Mg Tablet) 10 mg PO BEDTIME PRN PRN Reason: Insomnia Last Admin: 12/08/22 22:21 Dose: 10 mg Documented By: NIA Labs 12/09/22 01:16 12/09/22 01:16 Labs: Laboratory Results - last 24 hr 12/09/22 12/09/22 01:16 01:16 MCV 89.6 MCH 29.5 MCHC 33.0 RDW 16.9 H Plt Count 163 MPV 10.8 Immature Gran % (Auto) 0.3 Neut % (Auto) 37.4 L Lymph % (Auto) 42.0 H [place] % (Auto) 18.0 H Eos % (Auto) 2.0 Baso % (Auto) 0.3 Lymph # (Auto) 1.5 [place] # (Auto) 0.6 Eos # (Auto) 0.1 Baso # (Auto) 0.0 Abs Immat Gran (auto) 0.01 Absolute Neuts (auto) 1.3 L Absolute Nucleated RBC 0.000 Nucleated RBC % (auto) 0.0 Anion Gap 15 Estim Creat Clear Calc 103.8 Estimated GFR > 60 Random Glucose 144 H Calcium 8.4 Assessment and Plan (1) Alcohol withdrawal: Status: Acute Plan 52-year-old female with past medical history of alcohol abuse presents the hospital cough withdrawal. # Alcohol use disorder With alcohol withdrawal -treat with phenobarb protocol - thiamine and folic acid - monitor respiratory status - consult care team for help staying abstinent # COVID-19 infection - generalized weakness, no hypoxia - symptomatic treatment DVT prophylaxis: Lovenox need for inpatient: Ongoing treatment with alcohol withdrawal and monitoring for response given ongoing tachycardia and tremors this can all be managed in less acute setting. late entry note for 12/08 Time Spent With Patient Time: Total time managing care of this patient today ____ minutes. Quality Stroke Does the patient have a stroke diagnosis?: No VTE Prior VTE?: No VTE Risk Level:: Medical - moderate - high VTE Device Contraindication: Treatment Not Indicated VTE Drug Contraindication: N/A - Med Ordered
[2022-12-08 15:24] VITALS: BP 120/75; PULSE 102; RESP 18; TEMP 36.7; O2SAT 93
--- NOTE | 2022-12-08 15:33 | MHC.RECOVRN ---
This proposal writer met w/ patient, after addiction consult was placed. Patient was alert, laying in bed, watching t.v. Patient reports currently feeling better, some anxiety, difficulty sleeping, overall decrease in withdrawal symptoms. Patient reports has been drinking for many years. Patient states when living in [place], drank primarily on the weekends. Patient reports increased stressors in family, oldest child , and son incarcerated in 2018, led to increased drinking. Patient reports in May 2020-July 2021, period of recovery. Patient reports went through Detox, CSS, TSS levels of care via [facility] in [place] during that 15 months of recovery. Patient reports recent reoccurrence had increased drinking to daily. Patient reports [employer] had experienced withdrawal symptoms like the patient had not experienced in the past. Patient states in the past had tried Vivitrol and Campral. Patient reports did not find Vivitrol helpful. Recovery resources reviewed. Discussed making appt at [facility] for f/u with recovery supports and Campral rx. Appt made for 12/14/22 @ 2:45pm.
[2022-12-08 20:00] VITALS: BP 116/86; PULSE 89; RESP 18; TEMP 37.1; O2SAT 98
[2022-12-09] MEDS: 0.9 % Sodium Chloride Flush 3 ML SYRINGE IVFLUSH ×2 (00:44→08:42)
[2022-12-09] MEDS: Enoxaparin Sodium 40 MG/0.4 ML SYRINGE SUBCUT (00:44)
[2022-12-09 01:25] LABS: MANUAL DIFF FLAG NO
[2022-12-09 01:33] LABS: Basophils Percent Auto 0.3 % (0-2); Eosinophils Absolute Auto 0.1 X10*3/uL (0.0-0.4); Hematocrit 36.1 % (37.0-47.0); Hemoglobin 11.9 g/dl (12.0-16.0); Imm Gran Abs Auto 0.01 X10*3/uL (0.00-0.03); Imm Gran Pct Auto 0.3 % (0.0-0.4); Lymphocytes Absolute Auto 1.5 X10*3/uL (1.2-4.9); Mean Corpuscular Hemoglobin 29.5 pg (27.0-33.0); Mean Corpuscular Volume 89.6 fL (80.0-98.0); Mean Platelet Volume 10.8 fL (9.4-12.3); Monocytes Absolute Auto 0.6 X10*3/uL (0.1-1.2); Neutrophils Absolute Auto 1.3 x10*3/uL (2.0-8.3); Neutrophils Percent Auto 37.4 % (45-73); Platelet Count 163 X10*3/uL (160-400); Red Blood Count 4.03 X10*6/uL (4.20-5.50); Red Cell Distribution Width 16.9 % (11.0-16.0); White Blood Count 3.5 X10*3/uL (4.8-10.8)
[2022-12-09 01:42] LABS: Anion Gap 15 (12-20); Blood Urea Nitrogen 15 mg/dL (9-16); Calcium 8.4 mg/dL (8.4-10.2); Carbon Dioxide 26 mmol/L (22-29); Chloride 100 mmol/L (96-108); Creatinine Clr Calc Pharmacy 103.8; Estimated Glomerular Filt Rate > 60; Glucose Random 144 mg/dL (60-115); Sodium 137 mmol/L (135-145)
[2022-12-09 04:00] VITALS: BP 132/81; PULSE 75; RESP 20; TEMP 37; O2SAT 96
[2022-12-09] MEDS: Omeprazole 20 MG CAPSULE.DR PO (06:17)
[2022-12-09 07:16] VITALS: BP 104/67; PULSE 95; RESP 12; TEMP 36.8; O2SAT 97
--- NOTE | 2022-12-09 08:19 | PM.DS ---
DS: Providers Provider Date of Service: 12/08/22 Date of admission: 12/06/22 23:54 Primary care physician: RYAN Ferrer Consults: 12/06/22 16:29 Consult to Care Team Stat Comment: Reason for consultation: detox etoh? 12/08/22 08:24 Consult to Care Team Routine Comment: Reason for consultation: Alcoholism wants detox DS: Diagnosis Discharge Diagnosis (1) COVID-19 virus infection: Status: Acute (2) Alcohol withdrawal: Status: Acute DS: Summary Hospital Course Hospital Course: Chief Complaint: alcohol withdrawal ?this is a 52-year-old female past medical history of alcohol abuse, anxiety depression, hyperlipidemia, GERD presents to the hospital with complaints of? alcohol abuse presents to the hospital with complaints of alcohol withdrawal.? Patient reports that she stopped drinking about a day ago, she is also complaining of cough, feeling? generally unwell, no shortness of breath, reports fever, chills, nausea, no vomiting, no abdominal pain, no diarrhea constipation, no urinary symptoms and no lower extremity edema.? On arrival to the ED patient found to have heart rate of 130, sinus rhythm with no other abnormal findings Labs are significant for WBC count 3.4, hemoglobin of 12.0, AST of? 185, ALT 7, urine positive for leukocyte Estrace and some WBC, ?chest x-ray shows no evidence of acute process ?found to be COVID-19 positive Hospital course: The patient was admitted for alcohol withdrawal and found to have incidental covid 19 without symptoms. Alcohol withdrawal was treated with Phenobarbital per the protocol with supplemental thiamine and folate. She presently has no symptoms of alcohol withdrawal. She is seeking help to stay abstinent and therefore CARE team was asked to assist her and they have offered her resources and appointment to help her stay the course. Final diagnosis Alcohol withdrawal aldohol use desorder covid 19 Time Spent with Patient Time attestation: Total time managing care of this patient today ____ minutes. Discharge coordination time: Greater than 30 minutes Quality: Safe Use of Opioids Does Pt have an Active Cancer Diagnosis on the Problem List?: No Quality: Stroke Does the patient have a stroke diagnosis?: No Physical Exam Vital Signs: Vital Signs: Last Vital Signs Temp 98.1 F 12/08/22 08:00 Pulse 95 12/08/22 08:00 Resp 20 12/08/22 08:00 BP 124/75 12/08/22 08:00 Pulse Ox 96 12/08/22 08:00 O2 Del Method 12/08/22 08:00 O2 Flow Rate 2 12/06/22 16:37 BMI result Body Mass Index 30.7 Discharge Plan Discharge Anticipated Discharge Date/Time: 12/08/22 11:47 Patient Disposition: Home Health Service Discharge Diagnosis: Alcoholism, alcohol withdrawal. Referrals: Snehal Reno PA [Primary Care Provider] - 1 Week Discharge Medications: Continued meloxicam 15 mg tablet 1 tab PO DAILY thiamine HCl (vitamin B1) 100 mg tablet 1 tab PO DAILY folic acid 1 mg tablet 1 tab PO DAILY cyanocobalamin (vitamin B-12) 1,000 mcg tablet 1,000 mcg PO DAILY zolpidem 10 mg tablet 10 mg PO BEDTIME PRN (Reason: Insomnia) omeprazole 20 mg capsule,delayed release(DR/EC) 20 mg PO DAILY Discharge Orders: Discharge Order (Routine); Ordered 12/09/22 Ordered By: Rc Short Diet: Advance to usual diet Activity on Discharge: As tolerated Stand Alone Forms: Patient Portal Discharge page Care Plan Goals: Abstinence from alcohol Health Concerns: Chronic alcoholism, alcohol withdrawal Plan of Treatment: To stay abstinent from alcohol Follow through the appointment and resources given to you by the CARE team Assessment: as above
[2022-12-09] MEDS: Cyanocobalamin (Vitamin B-12) 1,000 MCG TABLET 1000 MCG PO (08:42)
[2022-12-09] MEDS: Thiamine HCL 100 MG TABLET PO (08:42)
[2022-12-09] MEDS: Folic Acid 1 MG TABLET PO (08:42)
[2022-12-09] MEDS: PHENobarbitaL 30 MG TABLET PO (08:42)
--- NOTE | 2022-12-09 12:12 | MHC.CM.PN ---
PT BEING DISCHARGED TODAY PT EXPRESSED CONCERN REGARDING RETURNING HOME TO RN CM MET WITH PT TO DISCUSS CONCERNS SHE REPORTS SHE AND HER LIVE WITH HER SON AND HIS AND THEY ARE PLANNING TO HAVE A SUPERBOWL DEMOCRAT SHE SAYS SHE IS WORRIED ABOUT THE ALCOHOL CONSUMPTION THAT WILL BE TAKING PLACE CM REMINDED HER SHE WOULD NEED TO ISOLATE ONCE HOME CM ALSO SUGGESTED THEY MAY WANT TO RECONSIDER HAVING A DEMOCRAT IT IS POSSIBLE MORE MEMBERS OF THE FAMILY ARE COVID-19 + PT HAS AN APPT AT THE [facility] ON SATURDAY HER WILL TRANSPORT AT 1400 HOURS
--- NOTE | 2022-12-09 13:16 | PC.NURSE ---
IV REMOVED REVIEWED DISCHARGE PAPERWORK AND ANSWERED QUESTIONS ABOUT COVID/REMAINING DAYS FOR GENNA
== END 2022-12-09 13:49 | disposition home health service (06) | DRG 137 ==
LOC: HO.ED 20:41 → HO.EDOVER 12-07 00:01 → HO.IMC 12-07 19:50
PROVIDERS: Physician Assistant; Admitting Provider Internal Medicine; Emergency Provider Emergency Medicine; PCP Physician Assistant Medical; Visit Provider Internal Medicine
DX: U07.1 COVID-19 (principal); E78.5 Hyperlipidemia, unspecified; K21.9 Gastro-esophageal reflux disease without esophagitis; F10.139 Alcohol abuse with withdrawal, unspecified; F41.9 Anxiety disorder, unspecified; F32.A Depression, unspecified; R73.03 Prediabetes; Z79.899 Other long term (current) drug therapy
CPT/HCPCS: 36415; 71045; 80048; 80053; 80307; 81001; 82077; 83735; 83880; 84484; 85025; 87635; 93005; 99285; J1650; J2560

== ENCOUNTER → 2022-12-14 14:40 | Outpatient (BNVA) | payer OTHER, SELFPAY | PROVIDERS: PCP Physician Assistant Medical; Visit Provider Nurse Practitioner Psychiatric/Mental Health | DX: F10.280 Alcohol dependence with alcohol-induced anxiety disorder (principal); Z79.899 Other long term (current) drug therapy | CPT/HCPCS: 99212 ==

== ENCOUNTER 2023-07-02 18:26 | Inpatient (IN) | payer OTHER, SELFPAY ==
--- NOTE | ~2023-07-02 | XR_ITS ---
EXAMINATION: XR CHEST CLINICAL INFORMATION: Shortness of breath COMPARISON: Previous chest x-ray November 2022 TECHNIQUE: Frontal view of the chest was obtained. FINDINGS: No significant abnormality is noted involving the heart, lungs, mediastinum, bony thorax or soft tissues. There is slight elevation of the right hemidiaphragm similar to previous exam. There are mild degenerative changes of the thoracic spine. XR/XR chest 1V IMPRESSION: No evidence for acute disease in the chest.
[2023-07-02 18:28] VITALS: BP 169/105; PULSE 102; RESP 20; TEMP 36.8; O2SAT 96; BMI 31.1
--- NOTE | 2023-07-02 18:28 | ED.GENADULT ---
HPI - General Adult General Chief complaint: ETOH/Substance Use Stated complaint: alcohol withdrawal, chest pain, sob Time Seen by Provider: 07/02/23 23:23 Source: patient Mode of arrival: ambulatory Limitations: no limitations History of Present Illness HPI narrative: 52-year-old female past medical history of alcohol abuse (heavy liquor daily drinker at home), anxiety depression, hyperlipidemia, GERD presents to the hospital with complaints of? alcohol abuse presents to the hospital with complaints of alcohol withdrawal.? Patient reports that she stopped drinking about a day ago, chest pain, shortness of breath, jittery, feeling? generally unwell, reports no fever, chills, nausea, no vomiting, no abdominal pain, no diarrhea constipation, no urinary symptoms and no lower extremity edema.? Related Data Home Medications Medication Instructions Recorded Confirmed cyanocobalamin (vitamin B-12) 1,000 mcg PO DAILY 12/08/21 12/06/22 1,000 mcg tablet omeprazole 20 mg capsule,delayed 20 mg PO DAILY 12/08/21 12/06/22 release zolpidem 10 mg tablet 10 mg PO BEDTIME PRN Insomnia 12/08/21 12/06/22 folic acid 1 mg tablet 1 tab PO DAILY 12/06/22 12/06/22 meloxicam 15 mg tablet 1 tab PO DAILY 12/06/22 12/06/22 thiamine HCl (vitamin B1) 100 mg 1 tab PO DAILY 12/06/22 12/06/22 tablet Previous Rx's Medication Instructions Recorded hydroxyzine HCl 25 mg tablet 25 mg PO TID PRN for anxiety #60 12/31/22 tabs trazodone 50 mg tablet 50 mg PO BEDTIME PRN for insomnia 01/07/23 #30 tabs acamprosate 333 mg tablet,delayed 666 mg PO TID #90 tabs 01/09/23 release Allergies Allergy/AdvReac Type Severity Reaction Status Date / Time No Known Allergies Allergy Verified 07/02/23 18:28 Review of Systems Review of Systems: All other systems are reviewed and are negative Constitutional: Reports as per HPI and Reports no additional constitutional complaints Eyes: Reports as per HPI and Reports no additional eye complaints Reports system reviewed and no additional complaints, except as documented Cardiovascular: Reports as per HPI and Reports no additional cardiovascular complaints Respiratory: Reports as per HPI and Reports no additional respiratory complaints Gastrointestinal: Reports as per HPI and Reports no additional gastrointestinal complaints Genitourinary: Reports no additional female genitourinary complaints Musculoskeletal: Reports no additional musculoskeletal complaints Skin/Breast: Reports system reviewed and no additional complaints, except as docu Psychiatric: Reports no additional psychiatric complaints Endocrine: Reports no additional endocrine complaints Hematologic/Lymphatic: Reports no additional hematologic/lymphatic complaints Allergic/Immunologic: Reports no additional allergic/immunologic complaints Reports system reviewed and no additional complaints, except as documented and Reports Abnormal speech present [facility] Past Medical History Medical History Alcohol abuse Anemia Anisocoria Anxiety Depression GERD (gastroesophageal reflux disease) Hyperlipidemia Prediabetes Surgical History H/O tubal ligation Family History Family History Father Cancer Mother Arthritis Social History Social History Household Members: Spouse and Children Housing: Apartment Do you presently have visiting nurse or other home services: No Alcohol intake: current Alcohol intake frequency: holidays/special occasions only Patient Tobacco Use Status: Never used Tobacco Smoked in Last 30 Days: No Second Hand Smoke Exposure: No Use of substances other than those prescribed or required for medical reasons: No Advance Directives: Yes Advance Directives on File: Yes Advance Directives Date on File: 12/06/22 Patient : No service: No Physical Exam ED Vital Signs: Vital Signs - 24 hr 07/02/23 18:28 07/02/23 23:00 Temperature 98.3 F 98.3 F Pulse Rate 102 H 105 H Respiratory Rate 20 20 Blood Pressure 169/105 H 146/96 H Pulse Oximetry 96 97 Oxygen Delivery Method Room Air Room Air BMI result Body Mass Index 31.1 Vital signs have been reviewed as appeared to be correct. Blood pressure normal. Tachycardia, Respiration rate normal. Temperature normal. Oxygen saturation normal. Appearance: Anxious, Alert. Oriented X3. No acute distress. Head: Normal external exam. Normocephalic. Atraumatic. No Servin signs noted. No raccoon eyes noted Eyes: PERRLA. EOMI. Conjunctiva and sclera normal. Eyelids normal. ENT: TM's Normal. Pharynx normal. Uvula midline. Moist mucous membranes. No trismus noted. No drooling noted. No muffled voice noted. Neck: Normal inspection. Neck supple. FROM. No adenopathy. Thyroid Normal. No meningeal signs. No neck mass noted. CVS: Normal heart rate and rhythm. Heart sound normal. No murmurs noted. Pulses normal throughout. Respiratory: No respiratory distress. Painless inspiration. Breath sounds normal. No wheezes/rales/rhonchi noted. Chest nontender. No accessory muscle usage noted or decreased air movement noted. Abdomen: Soft and nontender. Bowel sounds normal in all 4 quadrants. No distention noted. No organomegaly noted. No visible injury noted. Back: No CVA tenderness. Full range of motion noted. Skin: Skin warm and dry. Normal skin color. Normal skin turgor. No rashes/lesions/lacerations noted. Extremities: Involuntary tremors to the upper extremities, with tongue fasciculation. Neuro: Oriented X 3. Cranial nerve exam: II-XII are grossly intact No motor deficit. No sensory deficit. Reflexes normal. Course Course Course Narrative: Patient is a 53 year old female who reports she is going through alcohol withdrawal. She reports that she finished 1/5th of whiskey this morning about 10am. Normally drinks 2/5ths of whiskey a day. No history of seizures. She reports she is having chest tightness and shortness of breath that started in the last two hours. No SI/HI, no . Denies drug use. NIH Stroke scale 0. CIWA 16 Plan: labs, urine, ekg primer [id number] stuart Reevaluation(s) Reevaluation #1: 53-year-old female with alcohol withdrawal and CIWA score of 18 will start the patient on IV fluids/Ativan/phenobarb as needed. Time: 23:41 Medications Administered Discontinued Medications Generic Name Dose Route Start Last Admin Trade Name Freq PRN Reason Stop Dose Admin Lorazepam 2 mg 07/02/23 18:33 07/02/23 20:18 Lorazepam 2 Mg/Ml Vial IVPUSH 07/02/23 18:34 2 mg ONCE ONE Administration Medical Decision Making Differential Diagnosis Differential Diagnoses: The differential diagnosis associated with the presentation includes (ACS, pneumonia, pneumothorax, anxiety, alcohol withdrawal, severe anemia, electrolyte abnormality.) Admission/Observation Consideration of admission/observation: Escalation of care including admission/observation considered Consult Healthcare Provider Management of the patient was discussed with: Hospitalist (Dr. Short) Lab Data MDM Lab Attestation statement: I reviewed the patient's lab results. 07/02/23 18:50 07/02/23 18:50 Labs: Lab Results 07/02/23 07/02/23 07/02/23 Range/Units 18:50 18:50 18:50 WBC 5.6 (4.8-10.8) X10*3/uL RBC 4.05 L (4.20-5.50) X10*6/uL Hgb 12.9 (12.0-16.0) g/dl Hct 37.7 (37.0-47.0) % MCV 93.1 (80.0-98.0) fL MCH 31.9 (27.0-33.0) pg MCHC 34.2 (31.0-35.0) g/dl RDW 18.6 H (11.0-16.0) % Plt Count 186 (160-400) X10*3/uL MPV 9.5 (9.4-12.3) fL Immature Gran % (Auto) 0.0 (0.0-0.4) % Neut % (Auto) 42.1 L (45-73) % Lymph % (Auto) 45.7 H (20-40) % [place] % (Auto) 8.8 (2-11) % Eos % (Auto) 2.7 (0-4) % Baso % (Auto) 0.7 (0-2) % Lymph # (Auto) 2.5 (1.2-4.9) X10*3/uL [place] # (Auto) 0.5 (0.1-1.2) X10*3/uL Eos # (Auto) 0.2 (0.0-0.4) X10*3/uL Baso # (Auto) 0.0 (0.0-0.2) X10*3/uL Abs Immat Gran (auto) 0.00 (0.00-0.03) X10*3/uL Absolute Neuts (auto) 2.3 (2.0-8.3) x10*3/uL Absolute Nucleated RBC 0.000 (0.0-0.012) X10*3/uL Nucleated RBC % (auto) 0.0 (0.0-0.2) /100WBC Sodium 139 (135-145) mmol/L Potassium 3.5 (3.3-5.1) mmol/L Chloride 105 (96-108) mmol/L Carbon Dioxide 22 (22-29) mmol/L Anion Gap 16 (12-20) BUN 11 (9-16) mg/dL Creatinine 0.71 (0.5-1.4) mg/dL Estim Creat Clear Calc 109.1 Estimated GFR > 60 Random Glucose 127 H (60-115) mg/dL Calcium 9.3 D (8.4-10.2) mg/dL Magnesium 1.5 L (1.6-2.6) mg/dL Total Bilirubin 0.4 (0.0-1.0) mg/dL AST 35 H (5-31) U/L ALT 20 (0-31) U/L Alkaline Phosphatase 82 (39-117) U/L Troponin I High Sens < 2.7 (<3.5-17.0) ng/L Total Protein 7.7 (6.5-8.0) g/dL Albumin 3.9 (3.5-5.0) g/dL Lipase 23 (8-78) U/L Ethyl Alcohol 103 mg/dL Independent Interpretation I performed an independent interpretation of an: EKG (Normal sinus rhythm at 96 beats per minute with LVH, left axis deviation, normal intervals, nonspecific ST-T changes.) and Plain X-Ray (Chest: No acute intrathoracic pathology.) Radiology Impression Discussion of test interpretation with radiology: I have reviewed the radiologist's reading. Chronic Conditions Patient?s care impacted by: Other (Alcohol abuse) Discharge Plan Discharge Clinical Impression: Alcohol withdrawal Patient Disposition: Admitted As Inpatient
--- NOTE | 2023-07-02 18:30 | ECG_ITS ---
Test Reason : CHEST PAIN Blood Pressure : / mmHG Vent. Rate : 096 BPM Atrial Rate : 096 BPM P-R Int : 152 ms QRS Dur : 070 ms QT Int : 350 ms P-R-T Axes : 019 -13 -03 degrees QTc Int : 442 ms Normal sinus rhythm Minimal voltage criteria for LVH, may be normal variant ( R in aVL ) Possible Lateral infarct , age undetermined Nonspecific T wave abnormality Abnormal ECG When compared with ECG of 06-DEC-2022 16:17, Nonspecific T wave abnormality now evident in Anterior leads Referred By: Robb Clinton Electronically Signed By:KYRA BARON
[2023-07-02 18:54] LABS: MANUAL DIFF FLAG NO
[2023-07-02 18:56] LABS: Basophils Percent Auto 0.7 % (0-2); Eosinophils Absolute Auto 0.2 X10*3/uL (0.0-0.4); Eosinophils Percent Auto 2.7 % (0-4); Hematocrit 37.7 % (37.0-47.0); Hemoglobin 12.9 g/dl (12.0-16.0); Lymphocytes Absolute Auto 2.5 X10*3/uL (1.2-4.9); Lymphocytes Percent Auto 45.7 % (20-40); Mean Corpuscular HGB Conc 34.2 g/dl (31.0-35.0); Mean Corpuscular Hemoglobin 31.9 pg (27.0-33.0); Mean Corpuscular Volume 93.1 fL (80.0-98.0); Mean Platelet Volume 9.5 fL (9.4-12.3); Monocytes Absolute Auto 0.5 X10*3/uL (0.1-1.2); Monocytes Percent Auto 8.8 % (2-11); Neutrophils Absolute Auto 2.3 x10*3/uL (2.0-8.3); Neutrophils Percent Auto 42.1 % (45-73); Platelet Count 186 X10*3/uL (160-400); Red Blood Count 4.05 X10*6/uL (4.20-5.50); Red Cell Distribution Width 18.6 % (11.0-16.0); White Blood Count 5.6 X10*3/uL (4.8-10.8)
[2023-07-02 19:16] LABS: Alanine Aminotransferase 20 U/L (0-31); Albumin Level 3.9 g/dL (3.5-5.0); Alkaline Phosphatase 82 U/L (39-117); Anion Gap 16 (12-20); Aspartate Amino Transferase 35 U/L (5-31); Bilirubin Total 0.4 mg/dL (0.0-1.0); Blood Urea Nitrogen 11 mg/dL (9-16); Calcium 9.3 mg/dL (8.4-10.2); Carbon Dioxide 22 mmol/L (22-29); Chloride 105 mmol/L (96-108); Creatinine Clr Calc Pharmacy 109.1; Estimated Glomerular Filt Rate > 60; Ethanol 103 mg/dL; Glucose Random 127 mg/dL (60-115); Lipase 23 U/L (8-78); Magnesium 1.5 mg/dL (1.6-2.6); Potassium 3.5 mmol/L (3.3-5.1); Sodium 139 mmol/L (135-145); Total Protein 7.7 g/dL (6.5-8.0)
[2023-07-02 19:23] LABS: Troponin-I High Sensitivity < 2.7 ng/L (<3.5-17.0)
[2023-07-02] MEDS: LORazepam 2 MG/ML VIAL IVPUSH (20:18)
[2023-07-02 23:00] VITALS: BP 146/96; PULSE 105; RESP 20; TEMP 36.8; O2SAT 97
[2023-07-03] VITALS: BP 150/89; PULSE 88; RESP 14; O2SAT 95
[2023-07-03] MEDS: LORazepam 2 MG/ML VIAL IVPUSH (00:01)
[2023-07-03] MEDS: 0.9 % Sodium Chloride 1,000 ML 999 ML IV (00:01)
--- NOTE | 2023-07-03 00:15 | P.HPHOSP_ITS ---
History of Present Illness Date of Service: 07/02/23 Chief Complaint: Alcohol withdrawal 53-year-old female past medical history of alcohol abuse--drinks a 5th of Virgilio Reece and 8 nips daily and takes Acamprosate (helps o overcome alcoholism), anxiety depression, hyperlipidemia, GERD presents to the hospital with complaints of? 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 She was visibly tremoulous, anxious, tachycardic and has been started on Phenobarbital for alcohol withdrawal Review of Systems Review of Systems: Gen: no fever Resp: no sob, no cough CV: no chest, no LIRA, no leg edema GI: No n/v, no abd pain Neuro: No confusion Psych:anxious Yes all other systems are reviewed and are negative [facility] Medical History Alcohol abuse Anemia Anisocoria Anxiety Depression GERD (gastroesophageal reflux disease) Hyperlipidemia Prediabetes Family History Father Cancer Mother Arthritis Surgical History H/O tubal ligation Social History Household Members: Spouse and Children Housing: Apartment Do you presently have visiting nurse or other home services: No Alcohol intake: current Alcohol intake frequency: holidays/special occasions only Patient Tobacco Use Status: Never used Tobacco Smoked in Last 30 Days: No Second Hand Smoke Exposure: No Use of substances other than those prescribed or required for medical reasons: No Advance Directives: Yes Advance Directives on File: Yes Advance Directives Date on File: 12/06/22 Patient : No service: No Meds Allergies Allergy/AdvReac Type Severity Reaction Status Date / Time No Known Allergies Allergy Verified 07/02/23 18:28 Active Medications: Current Medications Sodium Chloride (Ns) 1,000 mls @ 999 mls/hr IV .Q1H1M ONE Stop: 07/03/23 00:30 Last Admin: 07/03/23 00:01 Dose: 999 mls/hr Pharmacy Consult (Consult Rx Etoh Phenob Im/Po) 1 each MISCELLANE ONCE PRN; Protocol PRN Reason: Consult order Phenobarbital Sodium (Phenobarbital Sodium 130 Mg/Ml Vial Im Q3hx2) 153.4 mg IM Q3H VELVET Stop: 07/03/23 06:01 Home Medications Medication Instructions Recorded Confirmed Last Taken Type cyanocobalamin (vitamin B-12) 1,000 mcg PO DAILY 12/08/21 12/06/22 Unknown History 1,000 mcg tablet omeprazole 20 mg capsule,delayed 20 mg PO DAILY 12/08/21 12/06/22 Unknown History release zolpidem 10 mg tablet 10 mg PO BEDTIME PRN Insomnia 12/08/21 12/06/22 Unknown History folic acid 1 mg tablet 1 tab PO DAILY 12/06/22 12/06/22 Unknown History meloxicam 15 mg tablet 1 tab PO DAILY 12/06/22 12/06/22 Unknown History thiamine HCl (vitamin B1) 100 mg 1 tab PO DAILY 12/06/22 12/06/22 Unknown History tablet Physical Exam Vital Signs and Narrative: Vital Signs: Last Vital Signs Temp 98.3 F 07/02/23 23:00 Pulse 105 H 07/02/23 23:00 Resp 20 07/02/23 23:00 BP 146/96 H 07/02/23 23:00 Pulse Ox 97 07/02/23 23:00 O2 Del Method Room Air 07/02/23 23:00 BMI result Body Mass Index 31.1 Const: Other: Constitutional: Alert, in no distress, anxious Mental Status: Oriented to person, place and time. Eyes: Pupils are equal, round and reactive to light. Ear, Nose and Throat: Oropharynx clear, mucous membranes moist. Ears and nose without eformities. Trachea midline. Respiratory: Clear to auscultation. No wheezing, rales or rhonchi. Cardiovascular: S1 S2 regular. No murmurs, rubs or gallops. Gastrointestinal: Abdomen soft, non-tender, non-distended. Normal bowel sounds.? Neurologic: Cranial nerves II-XII grossly intact. No focal neurological defici ts. Moves all extremities spontaneously.?tremulous Skin: No rashes or lesions.? Musculoskeletal: No cyanosis or clubbing. Psychiatric:anxious Results Labs 07/02/23 18:50 07/02/23 18:50 Labs: Laboratory Results - last 24 hr 07/02/23 07/02/23 18:50 18:50 MCV 93.1 MCH 31.9 MCHC 34.2 RDW 18.6 H Plt Count 186 MPV 9.5 Immature Gran % (Auto) 0.0 Neut % (Auto) 42.1 L Lymph % (Auto) 45.7 H [place] % (Auto) 8.8 Eos % (Auto) 2.7 Baso % (Auto) 0.7 Lymph # (Auto) 2.5 [place] # (Auto) 0.5 Eos # (Auto) 0.2 Baso # (Auto) 0.0 Abs Immat Gran (auto) 0.00 Absolute Neuts (auto) 2.3 Absolute Nucleated RBC 0.000 Nucleated RBC % (auto) 0.0 Anion Gap 16 Estim Creat Clear Calc 109.1 Estimated GFR > 60 Random Glucose 127 H Calcium 9.3 D Magnesium 1.5 L Total Bilirubin 0.4 AST 35 H ALT 20 Alkaline Phosphatase 82 Total Protein 7.7 Albumin 3.9 Lipase 23 Ethyl Alcohol 103 Imaging Radiologist's Impressions: Impressions Chest X-Ray 07/02/23 19:45 IMPRESSION: No evidence for acute disease in the chest. Assessment and Plan (1) Alcohol withdrawal: Status: Acute (2) Alcohol use disorder, moderate, dependence: Status: Acute Plan ?53-year-old female with past medical history of alcohol dependence admitted for alcohol withdrawal Alcohol? use disorder With alcohol withdrawal, at risk for DTs - treat with? phenobarb protocol -? thiamine and folic acid -? consult? addiction team for consideration of detox B12 def--continue when med rec done Med rec not yet completed ?DVT prophylaxis: ? Lovenox admission for at least 2 midnights for treatment with alcohol withdrawal and monitoring for response given ongoing tachycardia and tremors this cannot be managed in less acute setting. Time Spent With Patient Time: Total time managing care of this patient today ____ minutes. Quality Stroke Does the patient have a stroke diagnosis?: No VTE Prior VTE?: No VTE Risk Level:: Medical - moderate - high VTE Device Contraindication: Treatment Not Indicated VTE Drug Contraindication: N/A - Med Ordered
[2023-07-03] MEDS: PHENobarbitaL sodium 130 MG/ML IM ONCE 204.1 MG IM (00:27)
[2023-07-03] MEDS: Magnesium Sulfate/H2O 2 GM/50 ML PIGGYBACK IV (01:19)
[2023-07-03 01:45] VITALS: BP 135/73; PULSE 107; RESP 21; O2SAT 92
[2023-07-03 04:07] LABS: Appearance Urine Clear; Color Urine Yellow; Glucose Urine UA Negative (Negative); Leukocyte Esterase Urine Negative (Negative); Nitrite Urine Negative (Negative); PH 5.5 (5.0-9.0); Specific Gravity - Urine 1.025 (1.005-1.025); UMIC TRIGGER UACC YES; Urine Blood Negative (Negative); Urine Ketones Trace mg/dL (Negative); Urine Protein 30 (1+) mg/dL (Neg-Trace)
[2023-07-03 04:12] LABS: Bacteria Urine 1+ (None Seen); Hyaline Casts Urine 0-2 /LPF (0-2); RBC Urine 0-2 /HPF (0-2); Squamous Epithelial Cell Urine 0-2 /HPF (0-2); WBC Urine 0-5 /HPF (0-5)
[2023-07-03 04:18] LABS: Amphetamine Screen Urine Not Detected (Not Detect); Barbiturates, Urine Not Detected (Not Detect); Benzodiazepines Screen Urine Not Detected (Not Detect); Cannabinoid Screen Urine Not Detected (Not Detect); Cocaine Screen Urine Not Detected (Not Detect); Fentanyl, urine Not Detected (Not Detect); Opiate Screen Urine Not Detected (Not Detect); Phencyclidine Screen Urine Not Detected (Not Detect)
[2023-07-03] MEDS: PHENobarbitaL sodium 130 MG/ML VIAL IM Q3Hx2 153.4 MG IM ×2 (04:44→07:41)
--- NOTE | 2023-07-03 06:16 | PC.NURSE ---
This RN administered 0300 phenobarb late at 0444. Called pharmacy to adjust time due to being late and not wanting to give med too early. Pharmacy report they are unable to do this and recmmend not giving med until 0745. This RN will report to day shift
--- NOTE | 2023-07-03 07:47 | PC.NURSE ---
pt a&ox3, vss and up to date, nsr on the manager monitoring. respirations even and unlabored. pt resting comfortably in no apparent distress. phenobarb administered to left deltoid. pt currently not displaying any physical signs of withdrawal romel aside from nausea. pt also verbalizes that the anxiety/jitters and agitation has subsided from this morning. pt's main complaint right now is exhaustion. lights dimmed with the call lion placed within reach.
[2023-07-03] MEDS: 0.9 % Sodium Chloride Flush 3 ML SYRINGE IVFLUSH ×3 (08:00→20:27)
[2023-07-03] MEDS: Enoxaparin Sodium 40 MG/0.4 ML SYRINGE SUBCUT (08:01)
--- NOTE | 2023-07-03 08:03 | PC.NURSE ---
medication administered per provider order.
--- NOTE | 2023-07-03 08:14 | PC.NURSE ---
this nurse attempted to call report to the floor, was placed on hold by floor personal secretary, after a period of time the phone began ringing again to the floor without staff picking it up, will notify charge
--- NOTE | 2023-07-03 08:27 | PC.NURSE ---
report given to floor, transport notified
--- NOTE | 2023-07-03 09:19 | PHA.MEDREC ---
Pharmacy Consult ? Medication Reconciliation Pharmacy has completed the medication reconciliation. Reviewed claim history and noted no recent fills of any meds except for omeprazole. Confirmed with patient she is on omeprazole prn and she states no other meds at home.
--- NOTE | 2023-07-03 09:26 | PC.NURSE ---
pt being transported.
[2023-07-03 09:39] VITALS: BP 153/82; PULSE 78; RESP 18; TEMP 36.7; O2SAT 95
[2023-07-03] MEDS: ondansetron HCL 4 MG/2 ML VIAL IVPUSH (09:39)
[2023-07-03 10:21] VITALS: BMI 31.8
--- NOTE | 2023-07-03 10:58 | MHC.RECOVSUP ---
Met with pt in ED9 who is here for EDER. Pt reports drinking about 2 5ths and 6 nips a day for the past 2 years and was last treated [facility] in 2019. pt has tried Vivitrol and campral but they didnt help. At this time pt is not interested in ATS but is open to working with a project coach and therapist in addition to the AA group she has been attending. Pt has no other questions or concerns at this time.
[2023-07-03] MEDS: PHENobarbitaL sodium 130 MG/ML VIAL IM (11:46)
--- NOTE | 2023-07-03 13:01 | HO.PM.IMPN ---
Subjective Subjective Date of Service: 07/03/23 Interval History: Alcohol withdrawal Review of Systems Patient still very anxious, tremulous Denies any chest pain or shortness of breath. Physical Exam Vital Signs: Vital Signs: Last Vital Signs Temp 98.0 F 07/03/23 09:39 Pulse 78 07/03/23 09:39 Resp 18 07/03/23 09:39 BP 153/82 H 07/03/23 09:39 Pulse Ox 95 07/03/23 09:39 O2 Del Method Room Air 07/03/23 09:39 BMI result Body Mass Index 31.8 Appearance: Alert.? Oriented X3.?anxious /tramulous ? cvs: rrr, [id number] . res: clear to auscultation ,no rhonchii or wheezing abd: no rebound or guarding ,nt, bs present. ext pulses present , no cyanosis. neuro: axo3 , nonfocal. Objective Data Active Medications Acetaminophen (Acetaminophen 325 Mg Tablet) 650 mg PO Q6H PRN PRN Reason: Pain, Mild (Pain Scale 1-3) Al Hydroxide/Mg Hydroxide (Magnesium Hydrox/Alum Hydrox 30 Ml Oral.Susp) 30 ml PO Q4H PRN PRN Reason: Heartburn/Nausea Enoxaparin Sodium (Enoxaparin Sodium 40 Mg/0.4 Ml Syringe) 40 mg SUBCUT DAILY [facility] Last Admin: 07/03/23 08:01 Dose: 40 mg Documented By: BRODIE Melatonin (Melatonin 3 Mg Tablet) 6 mg PO BEDTIME PRN PRN Reason: Insomnia Ondansetron HCl (Ondansetron Hcl 4 Mg/2 Ml Vial) 4 mg IVPUSH Q8H PRN PRN Reason: Nausea and Vomiting Last Admin: 07/03/23 09:39 Dose: 4 mg Documented By: AMANDA Pharmacy Consult (Consult Rx Etoh Phenob Im/Po) 1 each MISCELLANE ONCE PRN; Protocol PRN Reason: Consult order Phenobarbital (Phenobarbital 15 Mg Tablet) 45 mg PO BID [facility]; Protocol Stop: 07/05/23 21:01 Phenobarbital (Phenobarbital 15 Mg Tablet) 15 mg PO BID [facility]; Protocol Stop: 07/07/23 21:01 Phenobarbital (Phenobarbital 15 Mg Tablet) 15 mg PO DAILY [facility]; Protocol Stop: 07/09/23 09:01 Sodium Chloride (0.9 % Sodium Chloride Flush 3 Ml Syringe) 3 ml IVFLUSH QSHIFT [facility] Last Admin: 07/03/23 08:00 Dose: 3 ml Documented By: BRODIE Labs 07/02/23 18:50 07/02/23 18:50 Labs: Laboratory Results - last 24 hr 07/02/23 07/02/23 07/03/23 18:50 18:50 04:01 MCV 93.1 MCH 31.9 MCHC 34.2 RDW 18.6 H Plt Count 186 MPV 9.5 Immature Gran % (Auto) 0.0 Neut % (Auto) 42.1 L Lymph % (Auto) 45.7 H [place] % (Auto) 8.8 Eos % (Auto) 2.7 Baso % (Auto) 0.7 Lymph # (Auto) 2.5 [place] # (Auto) 0.5 Eos # (Auto) 0.2 Baso # (Auto) 0.0 Abs Immat Gran (auto) 0.00 Absolute Neuts (auto) 2.3 Absolute Nucleated RBC 0.000 Nucleated RBC % (auto) 0.0 Anion Gap 16 Estim Creat Clear Calc 109.1 Estimated GFR > 60 Random Glucose 127 H Calcium 9.3 D Magnesium 1.5 L Total Bilirubin 0.4 AST 35 H ALT 20 Alkaline Phosphatase 82 Total Protein 7.7 Albumin 3.9 Lipase 23 Urine Color Yellow Urine Appearance Clear Urine pH 5.5 Ur Specific [place] 1.025 Urine Protein 30 (1+) H Urine Glucose (UA) Negative Urine Ketones Trace Urine Blood Negative Urine Nitrite Negative Ur Leukocyte Esterase Negative Urine RBC 0-2 Urine WBC 0-5 Ur Squamous Epith Cells 0-2 Urine Bacteria 1+ Hyaline Casts 0-2 Urine Opiates Screen Urine Fentanyl Screen Ur Barbiturates Screen Ur Phencyclidine Scrn Ur Amphetamines Screen U Benzodiazepines Scrn Urine Cocaine Screen U Marijuana (THC) Screen Ethyl Alcohol 103 07/03/23 04:01 MCV MCH MCHC RDW Plt Count MPV Immature Gran % (Auto) Neut % (Auto) Lymph % (Auto) [place] % (Auto) Eos % (Auto) Baso % (Auto) Lymph # (Auto) [place] # (Auto) Eos # (Auto) Baso # (Auto) Abs Immat Gran (auto) Absolute Neuts (auto) Absolute Nucleated RBC Nucleated RBC % (auto) Anion Gap Estim Creat Clear Calc Estimated GFR Random Glucose Calcium Magnesium Total Bilirubin AST ALT Alkaline Phosphatase Total Protein Albumin Lipase Urine Color Urine Appearance Urine pH Ur Specific [place] Urine Protein Urine Glucose (UA) Urine Ketones Urine Blood Urine Nitrite Ur Leukocyte Esterase Urine RBC Urine WBC Ur Squamous Epith Cells Urine Bacteria Hyaline Casts Urine Opiates Screen Not Detected Urine Fentanyl Screen Not Detected Ur Barbiturates Screen Not Detected Ur Phencyclidine Scrn Not Detected Ur Amphetamines Screen Not Detected U Benzodiazepines Scrn Not Detected Urine Cocaine Screen Not Detected U Marijuana (THC) Screen Not Detected Ethyl Alcohol Assessment and Plan (1) Alcohol withdrawal: Status: Acute Plan 53-year-old female with past medical history of alcohol dependence admitted for alcohol withdrawal ?Alcohol? use disorder With alcohol withdrawal, at risk for DTs drug screen neg alcohollevels (on 07/02) 103 last ciwa around 2 but seems very anxious and tramulous.blood pressure also elevated . added another im phenobarbital dose,phenobarb protocol,thiamine and folic acid,added clonidine. consult? addiction team for consideration of detox B12 def--continue when med rec done Med rec not yet completed ?DVT prophylaxis: ? Lovenox ongoing admission for :alcohol withdrawal -needs ciwa , need phenobarbital. Time Spent With Patient Time: Total time managing care of this patient today ____ minutes. Quality Stroke Does the patient have a stroke diagnosis?: No VTE Prior VTE?: No VTE Risk Level:: Medical - moderate - high VTE Device Contraindication: Treatment Not Indicated VTE Drug Contraindication: N/A - Med Ordered
[2023-07-03] MEDS: cloNIDine HCL 0.1 MG TABLET PO ×2 (13:36→20:26)
[2023-07-03 15:44] VITALS: BP 135/84; PULSE 82; RESP 17; TEMP 37.1; O2SAT 97
[2023-07-03 20:00] VITALS: BP 137/85; PULSE 93; RESP 18; TEMP 36.1; O2SAT 94
[2023-07-03 20:20] VITALS: BP 135/83; PULSE 78; O2SAT 98
[2023-07-04 03:31] VITALS: BP 105/68; PULSE 72; RESP 20; TEMP 36.1; O2SAT 97
[2023-07-04 07:25] VITALS: BP 129/80; PULSE 83; RESP 16; TEMP 35.9; O2SAT 95
[2023-07-04] MEDS: Enoxaparin Sodium 40 MG/0.4 ML SYRINGE SUBCUT (07:32)
[2023-07-04] MEDS: 0.9 % Sodium Chloride Flush 3 ML SYRINGE IVFLUSH ×3 (07:32→20:15)
[2023-07-04] MEDS: PHENobarbitaL 15 MG TABLET 45 MG PO ×2 (07:33→20:15)
[2023-07-04] MEDS: cloNIDine HCL 0.1 MG TABLET PO ×2 (07:33→20:14)
--- NOTE | 2023-07-04 10:18 | PM.DS ---
DS: Providers Provider Date of Service: 07/04/23 Date of admission: 07/02/23 23:56 Date of discharge: 07/04/23 Primary care physician: Unknown Physician Consults: 07/03/23 00:33 Addiction Medicine Routine Consulting Provider: Addiction Covering Reason for consultation: alcoholism Has provider been notified: No Attending physician on discharge: Dayton Mcclure Discharging clinician: Dayton Mcclure DS: Diagnosis Discharge Diagnosis (1) Alcohol withdrawal: Status: Acute DS: Summary Hospital Course Hospital Course: 53-year-old female past medical history of alcohol abuse--drinks a 5th of Virgilio Newell and 8 nips daily and takes Acamprosate (helps o overcome alcoholism), anxiety depression, hyperlipidemia, GERD presents to the hospital with complaints of? 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 Hospital course: Patient was admitted for alcohol withdrawal-started on phenobarbital protocol. Patient seems to be improved significantly. ciwa scale improved around 1-3 range , Feeling much better.wants to go home. Still somewhat anxious so added clonidine. In addition patient was strongly advised to abstain from alcohol. Further management out patiently. Above management discussed with the patient in detail length she understand and in agreement with the above plan, time spent 50 minutes and 50% time spent on counseling. Time Spent with Patient Time attestation: Total time managing care of this patient today ____ minutes. Discharge coordination time: Greater than 30 minutes Quality: Safe Use of Opioids Does Pt have an Active Cancer Diagnosis on the Problem List?: No Quality: Stroke Does the patient have a stroke diagnosis?: No Physical Exam Vital Signs: Vital Signs: Last Vital Signs Temp 96.7 F L 07/04/23 07:25 Pulse 83 07/04/23 07:25 Resp 16 07/04/23 07:25 BP 129/80 07/04/23 07:25 Pulse Ox 95 07/04/23 07:25 O2 Del Method Room Air 07/04/23 07:25 BMI result Body Mass Index 31.8 Appearance: Alert.? Oriented X3.? not in distress.? cvs: rrr, [id number] , no murmur res: clear to auscultation ,no rhonchii or wheezing abd: no rebound or guarding ,nt, bs present. ext pulses present , no cyanosis . neuro: axo3 , nonfocal. DS: Data Data Completed and Pending Completed studies during hospitalization [Text1]: Procedures Detoxification Services for Substance Abuse Treatment (12/06/22) Imaging Chest x-ray: Radiologist's impression: ITS Impressions Chest X-Ray 07/02/23 19:45 IMPRESSION: No evidence for acute disease in the chest. Discharge Plan Discharge Anticipated Discharge Date/Time: 07/04/23 10:13 Patient Disposition: Home, Self-Care Discharge Diagnosis: alcohol withdrawal Referrals: Physician,Unknown J [Primary Care Provider] - 1 Week Discharge Medications: New clonidine HCl 0.1 mg Tablet 0.1 mg PO BID Qty: 60 0RF Protocol: Hold for SBP< HOLD for SBP < : 90 Continued omeprazole 20 mg capsule,delayed release(DR/EC) 20 mg PO DAILY PRN (Reason: Heartburn) Discharge Orders: Discharge Order (Routine); Ordered 07/04/23 Ordered By: Dayton Mcclure Diet: Advance to usual diet Activity on Discharge: As tolerated Stand Alone Forms: Patient Portal Discharge page Care Plan Goals: Patient was admitted for alcohol withdrawal-started on phenobarbital protocol. Patient seems to be improved significantly. Feeling much better. Still somewhat anxious so added clonidine. In addition patient was strongly advised to abstain from alcohol. Further management out patiently Health Concerns: As above. Plan of Treatment: As above. Assessment: as above.
--- NOTE | 2023-07-04 11:06 | MHC.CM.PN ---
Addendum entered by Cassie Butterfield 07/04/23 12:54: Discharge has been cancelled. CIWA remains 3 . Patient has received IM Phenobarb per RN. Original Note: DX ETOH Patient is discharged to home today self-care. She will arrange for transportation home.
[2023-07-04 12:41] VITALS: BP 100/60; PULSE 79; RESP 16; TEMP 36.2; O2SAT 96
[2023-07-04] MEDS: PHENobarbitaL sodium 130 MG/ML VIAL 65 MG IM (12:49)
--- NOTE | 2023-07-04 14:48 | HO.PM.IMPN ---
Subjective Subjective Date of Service: 07/04/23 Interval History: Alcohol withdrawal Review of Systems patient supposed to get discharged today but still having significant symptoms of alcohol withdrawal Anxious, tremulous Physical Exam Vital Signs: Vital Signs: Last Vital Signs Temp 97.2 F 07/04/23 12:41 Pulse 79 07/04/23 12:41 Resp 16 07/04/23 12:41 BP 100/60 07/04/23 12:41 Pulse Ox 96 07/04/23 12:41 O2 Del Method Room Air 07/04/23 12:41 BMI result Body Mass Index 31.8 Appearance: Alert.? Oriented X3.?anxious /tramulous ? cvs: rrr, [id number] . res: clear to auscultation ,no rhonchii or wheezing abd: no rebound or guarding ,nt, bs present. ext pulses present , no cyanosis. neuro: axo3 , nonfocal. Objective Data Active Medications Acetaminophen (Acetaminophen 325 Mg Tablet) 650 mg PO Q6H PRN PRN Reason: Pain, Mild (Pain Scale 1-3) Al Hydroxide/Mg Hydroxide (Magnesium Hydrox/Alum Hydrox 30 Ml Oral.Susp) 30 ml PO Q4H PRN PRN Reason: Heartburn/Nausea Clonidine HCl (Clonidine Hcl 0.1 Mg Tablet) 0.1 mg PO BID [facility]; Protocol Last Admin: 07/04/23 07:33 Dose: 0.1 mg Documented By: DANNY Enoxaparin Sodium (Enoxaparin Sodium 40 Mg/0.4 Ml Syringe) 40 mg SUBCUT DAILY [facility] Last Admin: 07/04/23 07:32 Dose: 40 mg Documented By: DANNY Melatonin (Melatonin 3 Mg Tablet) 6 mg PO BEDTIME PRN PRN Reason: Insomnia Omeprazole (Omeprazole 20 Mg Capsule.Dr) 20 mg PO DAILY PRN PRN Reason: Heartburn Ondansetron HCl (Ondansetron Hcl 4 Mg/2 Ml Vial) 4 mg IVPUSH Q8H PRN PRN Reason: Nausea and Vomiting Last Admin: 07/03/23 09:39 Dose: 4 mg Documented By: AMANDA Pharmacy Consult (Consult Rx Etoh Phenob Im/Po) 1 each MISCELLANE ONCE PRN; Protocol PRN Reason: Consult order Phenobarbital (Phenobarbital 15 Mg Tablet) 45 mg PO BID [facility]; Protocol Stop: 07/05/23 21:01 Last Admin: 07/04/23 07:33 Dose: 45 mg Documented By: DANNY Phenobarbital (Phenobarbital 15 Mg Tablet) 15 mg PO BID [facility]; Protocol Stop: 07/07/23 21:01 Phenobarbital (Phenobarbital 15 Mg Tablet) 15 mg PO DAILY [facility]; Protocol Stop: 07/09/23 09:01 Sodium Chloride (0.9 % Sodium Chloride Flush 3 Ml Syringe) 3 ml IVFLUSH QSHIFT [facility] Last Admin: 07/04/23 07:32 Dose: 3 ml Documented By: DANNY Labs 07/02/23 18:50 07/02/23 18:50 Assessment and Plan (1) Alcohol withdrawal: Status: Acute Plan 53-year-old female with past medical history of alcohol dependence admitted for alcohol withdrawal ?Alcohol? use disorder With alcohol withdrawal, at risk for DTs drug screen neg alcohollevels (on 07/02) 103 last ciwa around 3 but seems very anxious and tramulous.blood pressure also elevated . added another im phenobarbital dose,phenobarb protocol,added additional phenobarbiatl im dose,thiamine and folic acid, clonidine. consult? addiction team for consideration of detox B12 def--continue when med rec done Med rec not yet completed ?DVT prophylaxis: ? Lovenox ongoing admission for :alcohol withdrawal -needs ciwa , need phenobarbital. Time Spent With Patient Time: Total time managing care of this patient today ____ minutes. Quality Stroke Does the patient have a stroke diagnosis?: No VTE Prior VTE?: No VTE Risk Level:: Medical - moderate - high VTE Device Contraindication: Treatment Not Indicated VTE Drug Contraindication: N/A - Med Ordered
[2023-07-04 15:13] VITALS: BP 113/70; PULSE 82; RESP 18; TEMP 36.4; O2SAT 97
--- NOTE | 2023-07-04 15:14 | MHC.RECOVRN ---
This expert medical writer met with patient. Patient admitted for acute ETOH withdrawal. Pt was sitting up in bed resting. Pt at noon reported sweats, fatigue, lightheadedness. Reviewed findings with RN and Provider mesha Mcclure d/c held until tomorrow. Pt reports since last hospitalization 2-3 weeks recovery time, increased triggers, home life, work, family led to recurrence. Pt reports had stopped drinking for a few days [employer]. Pt reports extremely tremulous, nausea, vomitting. Pt reports it was a scary experience and drove to the ED. Reviewed risks with abruptly stopping ETOH, pt verbalized understanding. Pt reports interest in starting Campral, Antebuse. Reviewed recovery supports. As a part of d/c plan pt appt at the [facility] for medications for ETOH use. Pt agreeable. Reviewed findings with Provider Karyn Reagan. This expert medical writer to return with appointment card and medication information later bubba.
[2023-07-04 19:25] VITALS: BP 113/61; PULSE 84; RESP 18; TEMP 36.4; O2SAT 97
[2023-07-04] MEDS: Melatonin 3 MG TABLET 6 MG PO (20:14)
[2023-07-05 03:41] VITALS: BP 114/74; PULSE 66; RESP 18; TEMP 36.5; O2SAT 96
[2023-07-05 08:00] VITALS: BP 109/67; PULSE 76; RESP 18; TEMP 36.7; O2SAT 96
[2023-07-05] MEDS: PHENobarbitaL 15 MG TABLET 45 MG PO (09:28)
[2023-07-05] MEDS: 0.9 % Sodium Chloride Flush 3 ML SYRINGE IVFLUSH (09:28)
[2023-07-05] MEDS: Acamprosate Calcium 333 MG TABLET.DR 666 MG PO (09:29)
[2023-07-05] MEDS: cloNIDine HCL 0.1 MG TABLET PO (09:29)
[2023-07-05] MEDS: Enoxaparin Sodium 40 MG/0.4 ML SYRINGE SUBCUT (09:29)
--- NOTE | 2023-07-05 10:11 | HO.ADDICTPRO ---
Subjective Subjective Date of Service: 07/05/23 Reason For Visit: Alcohol withdrawal Interim History: Patient medically admitted with alcohol withdrawal Seen by assembler clip on sunglasses during her stay and discussed medications for AUD Patient expressed interest in Acamprosate and Disulfiram Patient seen in room 354, awake, alert and engaged in interview. Patient reports that she has been drinking large amounts of alcohol daily for the past several years. She is reporting feelings of depression and isolation related to the drinking as her routine consists of ?working, drinking, sleeping?. She identifies her as being supportive however he drinks (socially) and this is difficult for her. She has a strained relationship with many others in her family as she feels they will often ridicule her and comment on her ongoing drinking. Mental Status Exam Mental Status Exam Patient Appearance: Appropriate Mood Description: Anxious Speech Pattern: Clear Judgement: Fair Diagnostics Vital Signs (24Hr): Vital Signs - 24 hr 07/04/23 12:41 07/04/23 15:13 07/04/23 19:25 Temperature 97.2 F 97.5 F 97.6 F Pulse Rate 79 82 84 Respiratory Rate 16 18 18 Blood Pressure 100/60 113/70 113/61 Pulse Oximetry 96 97 97 Oxygen Delivery Method Room Air Room Air Room Air 07/05/23 03:41 07/05/23 08:00 Temperature 97.7 F 98.1 F Pulse Rate 66 76 Respiratory Rate 18 18 Blood Pressure 114/74 109/67 Pulse Oximetry 96 96 Oxygen Delivery Method Room Air Room Air BMI result Body Mass Index 31.8 Labs 07/02/23 18:50 07/02/23 18:50 Imaging Radiology Impressions: ITS Impressions Chest X-Ray 07/02/23 19:45 IMPRESSION: No evidence for acute disease in the chest. Medications Medications Current Medications Acamprosate (Acamprosate Calcium 333 Mg Tablet.) 666 mg PO TID [facility] Last Admin: 07/05/23 09:29 Dose: 666 mg Acetaminophen (Acetaminophen 325 Mg Tablet) 650 mg PO Q6H PRN PRN Reason: Pain, Mild (Pain Scale 1-3) Al Hydroxide/Mg Hydroxide (Magnesium Hydrox/Alum Hydrox 30 Ml Oral.Susp) 30 ml PO Q4H PRN PRN Reason: Heartburn/Nausea Clonidine HCl (Clonidine Hcl 0.1 Mg Tablet) 0.1 mg PO BID [facility]; Protocol Last Admin: 07/05/23 09:29 Dose: 0.1 mg Enoxaparin Sodium (Enoxaparin Sodium 40 Mg/0.4 Ml Syringe) 40 mg SUBCUT DAILY [facility] Last Admin: 07/05/23 09:29 Dose: 40 mg Melatonin (Melatonin 3 Mg Tablet) 6 mg PO BEDTIME PRN PRN Reason: Insomnia Last Admin: 07/04/23 20:14 Dose: 6 mg Omeprazole (Omeprazole 20 Mg Capsule.Dr) 20 mg PO DAILY PRN PRN Reason: Heartburn Ondansetron HCl (Ondansetron Hcl 4 Mg/2 Ml Vial) 4 mg IVPUSH Q8H PRN PRN Reason: Nausea and Vomiting Last Admin: 07/03/23 09:39 Dose: 4 mg Pharmacy Consult (Consult Rx Etoh Phenob Im/Po) 1 each MISCELLANE ONCE PRN; Protocol PRN Reason: Consult order Phenobarbital (Phenobarbital 15 Mg Tablet) 45 mg PO BID [facility]; Protocol Stop: 07/05/23 21:01 Last Admin: 07/05/23 09:28 Dose: 45 mg Phenobarbital (Phenobarbital 15 Mg Tablet) 15 mg PO BID [facility]; Protocol Stop: 07/07/23 21:01 Phenobarbital (Phenobarbital 15 Mg Tablet) 15 mg PO DAILY [facility]; Protocol Stop: 07/09/23 09:01 Sodium Chloride (0.9 % Sodium Chloride Flush 3 Ml Syringe) 3 ml IVFLUSH QSHIFT [facility] Last Admin: 07/05/23 09:28 Dose: 3 ml Allergies Allergies Allergy/AdvReac Type Severity Reaction Status Date / Time No Known Allergies Allergy Verified 07/02/23 18:28 Assessment & Plan Assessment & Plan (1) Alcohol use disorder, severe, dependence: Status: Acute Code(s): F10.20 - Alcohol dependence, uncomplicated Plan Acamprosate TID Disulfiram QD--reviewed dosing, goals of treatment and potential side effects. Reviewed interactions with foods and medicines and provided patient with written medication information as well patient to follow up outpatient at [facility] next week Total time managing care of this patient today _25___ minutes.
--- NOTE | 2023-07-05 10:53 | MHC.CM.PN ---
Patient is discharged to home self care. Pt was seen by the Recovery team. She will followup in the [facility]. Patient has arranged for transportation home.
== END 2023-07-05 13:13 | disposition home or self-care (01) | DRG 775 ==
LOC: HO.ED 23:43 → HO.EDOVER 23:58 → HO.S3 07-03 07:56
PROVIDERS: Physician Assistant; Admitting Provider Internal Medicine; Emergency Provider Emergency Medicine; Visit Provider Internal Medicine
DX: F10.139 Alcohol abuse with withdrawal, unspecified (principal); E53.8 Deficiency of other specified B group vitamins; K21.9 Gastro-esophageal reflux disease without esophagitis; E78.5 Hyperlipidemia, unspecified; Y90.5 Blood alcohol level of 100-119 mg/100 ml; F32.A Depression, unspecified; F41.9 Anxiety disorder, unspecified; Z79.899 Other long term (current) drug therapy
CPT/HCPCS: 36415; 71045; 80053; 80307; 81001; 83690; 83735; 84484; 85025; 93005; 99285; J1650; J2060; J2405; J2560; J3475

== ENCOUNTER → 2023-07-02 23:56 | Outpatient (BNV) | payer OTHER, SELFPAY | PROVIDERS: Admitting Provider Internal Medicine; Emergency Provider Emergency Medicine; Visit Provider Internal Medicine | DX: F10.230 Alcohol dependence with withdrawal, uncomplicated (principal) | CPT/HCPCS: 99223; 99232; 99239; 99499 ==

== ENCOUNTER → 2023-07-02 23:56 | Outpatient (BNV) | payer OTHER, SELFPAY | PROVIDERS: Admitting Provider Internal Medicine; Emergency Provider Emergency Medicine; Visit Provider Nurse Practitioner Psychiatric/Mental Health | DX: F10.20 Alcohol dependence, uncomplicated (principal) | CPT/HCPCS: 99231 ==

== ENCOUNTER 2023-07-10 14:53 | Outpatient (AMB) | payer OTHER, SELFPAY ==
--- NOTE | 2023-07-10 15:02 | A.OFFVIS_ITS ---
Intake Vital Signs 07/10/23 15:08 BP 110/68 Blood Pressure Location Lt radial Position Sitting Pulse 98 Pulse Source Pulse Oximeter Pulse Oximetry (%) 96 Oxygen Delivery Method Room Air Intake Visit Reasons: MAT restart Intake Note: the patient presents for a restart mat visit Territory Account Manager Required: No Allergies No Known Allergies Allergy (Verified 07/10/23 15:08) Do you need a note to return to daycare/school/sports/work: No HPI MAT restart HPI Details Patient presents for continuation treatment following recent hospitalization for AUD. Seen by this director underwriter sales during admission Started on Campral patient also requested Disulfiram rx at discharge, however unable to pick it up because it was on back order Reporting that she continues to abstain from alcohol Feeling alot of shame and guilt over relationship issues with family Discussed additional recovery supports, patient reporting that she works alot and is afraid of seeing anyone she knows at meetings. Reviewed other supports. [facility] Medical History Alcohol abuse Anemia Anisocoria Anxiety Depression GERD (gastroesophageal reflux disease) Hyperlipidemia Prediabetes Surgical History H/O tubal ligation Family History Father Cancer Mother Arthritis Social History Household Members: Spouse Housing: House Do you presently have visiting nurse or other home services: No Alcohol intake: current Alcohol intake frequency: holidays/special occasions o nly Patient Tobacco Use Status: Never used Tobacco Second Hand Smoke Exposure: No Advance Directives Date on File: 12/06/22 service: No Review of Systems Const Reports as per HPI Physical Exam Vital Signs: Last Vital Signs Pulse 98 07/10/23 15:08 BP 110/68 07/10/23 15:08 Pulse Ox 96 07/10/23 15:08 Oxygen Delivery Method Room Air 07/10/23 15:08 Const General: cooperative, healthy appearing and no acute distress Assessment & Plan Assessment & Plan (1) Alcohol use disorder, severe, dependence: Code(s): F10.20 - Alcohol dependence, uncomplicated Plan: * continue campral * start disulfiram * discussed recovery supports and importance in maining recovery Coding Level of Care Code Est Pt Level 3 (93652) Diagnoses Alcohol use disorder, severe, dependence F10.20
[2023-07-10 15:08] VITALS: BP 110/68; PULSE 98; O2SAT 96
== END 2023-07-10 15:49 | disposition home or self-care (01) ==
LOC: HO.HCC 14:53
PROVIDERS: Visit Provider Nurse Practitioner Psychiatric/Mental Health
DX: F10.20 Alcohol dependence, uncomplicated (principal)
CPT/HCPCS: 99213

== ENCOUNTER → 2023-07-10 14:53 | Outpatient (BNVA) | payer OTHER, SELFPAY | PROVIDERS: Visit Provider Nurse Practitioner Psychiatric/Mental Health | DX: F10.20 Alcohol dependence, uncomplicated (principal); Z51.81 Encounter for therapeutic drug level monitoring; Z79.899 Other long term (current) drug therapy | CPT/HCPCS: 99212 ==

== ENCOUNTER 2023-07-24 13:02 | Outpatient (AMB) | payer OTHER, SELFPAY ==
--- NOTE | 2023-07-24 13:04 | A.OFFVIS_ITS ---
Intake Vital Signs 07/24/23 13:10 BP 112/76 Blood Pressure Location Lt radial Position Sitting Pulse 93 Pulse Source Pulse Oximeter Pulse Oximetry (%) 97 Oxygen Delivery Method Room Air Intake Visit Reasons: mat visit Intake Note: The patient presents for a mat visit Manufacturer Required: No Allergies No Known Allergies Allergy (Verified 07/24/23 13:04) Do you need a note to return to daycare/school/sports/work: No HPI mat visit HPI Details Patient presents for AUD treatment follow up picked up Disulfiram, but has not taken it yet. closing on a condo very soon. Tearful during visit, recounting difficult relationships with family member [facility] Medical History Alcohol abuse Anemia Anisocoria Anxiety Depression GERD (gastroesophageal reflux disease) Hyperlipidemia Prediabetes Surgical History H/O tubal ligation Family History Father Cancer Mother Arthritis Social History Household Members: Spouse Housing: House Do you presently have visiting nurse or other home services: No Alcohol intake: current Alcohol intake frequency: holidays/special occasions only Patient Tobacco Use Status: Never used Tobacco Second Hand Smoke Exposure: No Advance Directives Date on File: 12/06/22 service: No Review of Systems Const Reports as per HPI and Reports no additional complaints Physical Exam Vital Signs: Last Vital Signs Pulse 93 07/24/23 13:10 BP 112/76 07/24/23 13:10 Pulse Ox 97 07/24/23 13:10 Oxygen Delivery Method Room Air 07/24/23 13:10 Const General: cooperative, healthy appearing and no acute distress Assessment & Plan Assessment & Plan (1) Alcohol use disorder, severe, dependence: Code(s): F10.20 - Alcohol dependence, uncomplicated Plan: * continue campral * patient agreeable to SSRI trial, dosing, side effects and goals of medication reviewed * follow up 3 weeks Medications: New citalopram (Celexa) take 1/2 tab daily for 5 days then increase to one tab daily 10 mg PO DAILY 30 tabs 0RF Refilled acamprosate 666 mg (2 x 333 mg) PO TID 180 tabs 3RF Coding Level of Care Code Est Pt Level 4 (51931) Diagnoses Alcohol use disorder, severe, dependence F10.20
[2023-07-24 13:10] VITALS: BP 112/76; PULSE 93; O2SAT 97
== END 2023-07-24 14:59 | disposition home or self-care (01) ==
LOC: HO.HCC 13:02
PROVIDERS: Visit Provider Nurse Practitioner Psychiatric/Mental Health
DX: F10.20 Alcohol dependence, uncomplicated (principal)
CPT/HCPCS: 99214

== ENCOUNTER → 2023-07-24 13:02 | Outpatient (BNVA) | payer OTHER, SELFPAY | PROVIDERS: Visit Provider Nurse Practitioner Psychiatric/Mental Health | DX: F10.20 Alcohol dependence, uncomplicated (principal) | CPT/HCPCS: 99212 ==

== ENCOUNTER 2023-09-25 06:32 | Emergency (ER) | payer OTHER, SELFPAY ==
--- NOTE | ~2023-09-25 | XR_ITS ---
EXAMINATION: XR CHEST CLINICAL INFORMATION: Cough COMPARISON: 07/02/2023 TECHNIQUE: 2 views of the chest were obtained. FINDINGS: There is mild elevation of the right hemidiaphragm, slightly increased when compared to prior. No significant abnormality is noted involving the heart, lungs, mediastinum, bony thorax or soft tissues. XR/XR chest 2V IMPRESSION: No acute intrathoracic disease. Mild elevation of right hemidiaphragm.
--- NOTE | 2023-09-25 06:44 | ED.GENADULT ---
HPI - General Adult General Chief complaint: General Medical Stated complaint: alcohol withdrawal, flu like symptoms Time Seen by Provider: 09/25/23 06:42 Source: patient Mode of arrival: ambulatory Limitations: no limitations History of Present Illness HPI narrative: Patient is a 53 year old assigned female at with a history of alcohol abuse presenting to the emergency department today feeling generally unwell and going through alcohol withdrawal. Patient states that she normally drinks approximately 1/5 of alcohol per day and has not drank since 09/24/2023. Patient states that she has a cough, headache, chills, and a runny nose. Patient denies any dizziness, lightheadedness, abdominal pain, nausea, vomiting, fever, blurry vision, double vision, loss of vision, chest pain, difficulty breathing, shortness of breath, back pain, night sweats, pain with urination, increased urinary frequency, increased urinary urgency, blood in her urine or stool, syncope or a near syncopal episode, recent trauma or falls, bowel incontinence, bladder incontinence, bowel retention, bladder retention, or any other complaints at this time. Onset (ago): day(s) (1) Severity: mild Relieving factors: none Exacerbating factors: none Associated symptoms: fever/chills and headaches Treatments prior to arrival: none Related Data Home Medications Medication Instructions Recorded Confirmed omeprazole 20 mg capsule,delayed 20 mg PO DAILY PRN Heartburn 12/08/21 07/03/23 release Previous Rx's Medication Instructions Recorded clonidine HCl 0.1 mg tablet 0.1 mg PO BID #60 tabs 07/04/23 disulfiram 250 mg tablet 250 mg PO DAILY #30 tabs 07/05/23 acamprosate 333 mg tablet,delayed 666 mg (2 x 333 mg) PO TID #180 07/24/23 release tabs citalopram 10 mg tablet (Celexa) 10 mg PO DAILY #30 tabs 07/24/23 ondansetron 4 mg disintegrating 4 mg PO Q8H 3 days #9 tabs 09/25/23 tablet Allergies Allergy/AdvReac Type Severity Reaction Status Date / Time No Known Allergies Allergy Verified 07/24/23 13:04 Review of Systems Constitutional: Constitutional: Reports no additional constitutional complaints, Reports chills, Denies fever(s), Reports headache(s) and Denies night sweats Eyes: Eyes: Reports no additional eye complaints, Denies blurry vision, Denies change in vision, Denies diplopia, Denies eye discharge, Denies loss of vision and Denies eye pain ENT: Denies dizziness and Reports headache(s) Cardiovascular: Cardiovascular: Reports no additional cardiovascular complaints, Denies chest pain, Denies lightheadedness, Denies Loss of Consciousness and Denies dyspnea Respiratory: Respiratory: Reports no additional respiratory complaints, Reports cough and Denies dyspnea Gastrointestinal: Gastrointestinal: Reports no additional gastrointestinal complaints, Denies abdominal pain, Denies melena, Denies hematochezia, Denies change in bowel habits and Denies change in stool character Genitourinary: Genitourinary: Denies hematuria, Denies urinary frequency, Denies dysuria, Denies urinary incontinence, Denies urinary hesitancy and Denies urinary urgency Musculoskeletal: Musculoskeletal: Reports no additional musculoskeletal complaints, Denies numbness and Denies tingling Neurologic: Denies dizziness, Reports headache(s), Denies loss of vision, Denies numbness and Denies tingling Psychiatric: Psychiatric: Reports no additional psychiatric complaints Endocrine: Endocrine: Reports no additional endocrine complaints Hematologic/Lymphatic: Hematologic/Lymphatic: Reports no additional hematologic/lymphatic complaints Allergic/Immunologic: Allergic/Immunologic: Reports no additional allergic/immunologic complaints [facility] Past Medical History Attestation statement: The following information was validated with the patient. Source: old records reviewed and nursing notes reviewed Medical History Alcohol abuse Anemia GERD (gastroesophageal reflux disease) Anxiety Depression Hyperlipidemia Prediabetes Anisocoria Surgical History H/O tubal ligation Family History Family History Father Cancer Mother Arthritis Social History Social History Household Members: Spouse Housing: House Do you presently have visiting nurse or other home services: No Alcohol intake: current Alcohol intake frequency: 3 or more drinks per day Patient Tobacco Use Status: Never used Tobacco Smoked in Last 30 Days: No Second Hand Smoke Exposure: No Use of substances other than those prescribed or required for medical reasons: No Advance Directives: Yes Advance Directives on File: Yes Advance Directives Date on File: 12/06/22 service: No Physical Exam ED Vital Signs: Vital Signs - 24 hr 09/25/23 06:49 09/25/23 07:34 09/25/23 07:35 Temperature 98.6 F 98.2 F Pulse Rate 95 89 89 Respiratory Rate 15 20 14 Blood Pressure 157/97 H 146/94 H 146/94 H Pulse Oximetry 97 96 96 Oxygen Delivery Method Room Air Room Air Room Air 09/25/23 09:52 Temperature 98.7 F Pulse Rate 98 Respiratory Rate 15 Blood Pressure 142/93 H Pulse Oximetry 98 Oxygen Delivery Method Room Air BMI result Body Mass Index 32.2 Const General: cooperative, no acute distress, alert and awake Nutritional Appearance: well nourished Orientation/consciousness: patient oriented x3 Limitations: no limitations HENMT Head: Yes normal to inspection and Yes atraumatic Ears: hearing grossly normal bilaterally and external ears normal General nose exam: Normal external nose present, no nasal discharge noted and no epistaxis Face and sinus: Yes normal facial exam, No abrasion and No laceration Mouth: Normal oral and palatal mucosa present, no drooling and no muffled voice Eyes General: appearance normal, both eyes and all related structures Periorbital: periorbital findings normal Eyelids: Yes eyelids normal Conjunctivae: conjunctivae normal Pupils: Equal, round and reactive pupils present EOM: EOMs intact bilaterally Neck Neck: Yes normal visual inspection, Yes full ROM and Yes no lymphadenopathy Chest Chest palpation & inspection: normal inspection of the chest Resp Effort & Inspection: normal respiratory effort and able to speak in complete sentences Auscultation: clear to auscultation bilaterally Cardio Rate: regular rate Rhythm: regular rhythm GI Inspection: Yes normal to inspection Neuro General: patient oriented x3 and moves all extremities Cranial nerves: Yes Equal, round and reactive pupils present Cognition (Neuro): normal cognition Motor exam (neuro): 5/5 motor strength present throughout Sensory Exam: Normal double simultaneous stimulation for sensation Coordination: [id number] test normal Extrem General: Yes normal to inspection, Yes full ROM and Yes capillary refill normal Psych Appearance: grossly normal Mental Status: mental status grossly normal Affect: normal affect Attitude: cooperative Thought process: Normal thought process present Thought content: Normal thought content present Insight: Good insight present (Psych) Medications Administered Discontinued Medications Generic Name Dose Route Start Last Admin Trade Name Freq PRN Reason Stop Dose Admin Sodium Chloride 1,000 mls @ 999 mls/hr 09/25/23 07:00 09/25/23 08:48 Ns IV 09/25/23 08:00 Infused .Q1H1M VELVET Infusion Ondansetron HCl 4 mg 09/25/23 09:54 09/25/23 10:07 Ondansetron Hcl 4 Mg/2 Ml Vial IVPUSH 09/25/23 09:55 4 mg ONCE ONE Administration Phenobarbital Sodium 255 mg 09/25/23 09:00 09/25/23 08:46 Phenobarbital Sodium 130 Mg/Ml Im Once IM 09/25/23 09:01 255 mg ONCE ONE Administration Protocol Medical Decision Making Medical Decision Making MDM Narrative: Patient is a 53 year old assigned female at with a history of alcohol abuse presenting to the emergency department today with alcohol withdrawal and feeling generally unwell. Patient's physical exam was as noted in the physical exam portion of this note. Patient's blood work was unremarkable. Patient's urine showed no acute process. Patient's EKG was unremarkable. Patient's chest x-ray showed no acute process. Patient's COVID/Influenza/RSV swab was negative. I explained my physical exam findings as well as all test results to the patient. I answered all questions asked by the patient. Patient received IV fluids and phenobarb while in the department which she stated helped her symptoms significantly. Patient was seen by the addiction team. Patient refused assistance with alcohol rehab placement. I stressed the importance of the patient taking her medication as prescribed. I stressed the importance of the patient following up with her primary care provider. I stressed the importance of the patient returning to the emergency department immediately if her symptoms were to worsen or if she were to develop any dizziness, shortness of breath, difficulty breathing, chest pain, blurry vision, loss of vision, nausea, vomiting, abdominal pain, fever, chills, back pain, or any other complaints. Patient verbalized agreement and understanding with this treatment plan and discharge. Differential Diagnosis Differential Diagnoses: The differential diagnosis associated with the presentation includes Alcohol withdrawal Alcohol abuse Viral illness COVID-19 RSV Influenza Gastritis Admission/Observation Consideration of admission/observation: Escalation of care including admission/observation considered Patient would have been admitted to the hospital had her work up had any findings where hospital admission was appropriate and her clinical presentation warranted hospital admission. Consult Healthcare Provider Management of the patient was discussed with: Behavioral Health Provider (spoke with the addiction team as noted in the MDM Rationale portion of this note.) Lab Data [facility] Lab Attestation statement: I reviewed the patient's lab results. My interpretation of these studies and their corresponding values is that they are grossly normal. 09/25/23 08:00 09/25/23 08:00 Labs: Lab Results 09/25/23 09/25/23 09/25/23 Range/Units 08:00 08:32 08:33 WBC 7.1 (4.8-10.8) X10*3/uL RBC 3.80 L (4.20-5.50) X10*6/uL Hgb 12.2 (12.0-16.0) g/dl Hct 36.7 L (37.0-47.0) % MCV 96.6 (80.0-98.0) fL MCH 32.1 (27.0-33.0) pg MCHC 33.2 (31.0-35.0) g/dl RDW 19.8 H (11.0-16.0) % Plt Count 181 (160-400) X10*3/uL MPV 9.9 (9.4-12.3) fL Immature Gran % (Auto) 0.4 (0.0-0.4) % Neut % (Auto) 70.1 (45-73) % Lymph % (Auto) 14.2 L (20-40) % [place] % (Auto) 13.8 H (2-11) % Eos % (Auto) 1.4 (0-4) % Baso % (Auto) 0.1 (0-2) % Lymph # (Auto) 1.0 L (1.2-4.9) X10*3/uL [place] # (Auto) 1.0 (0.1-1.2) X10*3/uL Eos # (Auto) 0.1 (0.0-0.4) X10*3/uL Baso # (Auto) 0.0 (0.0-0.2) X10*3/uL Abs Immat Gran (auto) 0.03 (0.00-0.03) X10*3/uL Absolute Neuts (auto) 5.0 (2.0-8.3) x10*3/uL Absolute Nucleated RBC 0.000 (0.0-0.012) X10*3/uL Nucleated RBC % (auto) 0.0 (0.0-0.2) /100WBC Sodium 138 (135-145) mmol/L Potassium 3.6 (3.3-5.1) mmol/L Chloride 104 (96-108) mmol/L Carbon Dioxide 23 (22-29) mmol/L Anion Gap 15 (12-20) BUN 7 L (9-16) mg/dL Creatinine 0.67 (0.5-1.4) mg/dL Estim Creat Clear Calc 117.6 Estimated GFR > 60 Random Glucose 105 (60-115) mg/dL Calcium 8.6 D (8.4-10.2) mg/dL Total Bilirubin 0.5 (0.0-1.0) mg/dL AST 66 H (5-31) U/L ALT 46 H (0-31) U/L Alkaline Phosphatase 76 (39-117) U/L Total Protein 7.3 (6.5-8.0) g/dL Albumin 3.9 (3.5-5.0) g/dL Urine Color Yellow Urine Appearance Clear Urine pH 8.0 (5.0-9.0) Ur Specific [place] 1.020 (1.005-1.025) Urine Protein Negative (Neg-Trace) mg/dL Urine Glucose (UA) Negative (Negative) mg/dL Urine Ketones Trace (Negative) mg/dL Urine Blood Negative (Negative) Urine Nitrite Negative (Negative) Ur Leukocyte Esterase Negative (Negative) Urine Test NEGATIVE (NEGATIVE) Salicylates < 5.0 L (15-30) mg/dL Urine Opiates Screen Not Detected (Not Detect) Urine Fentanyl Screen Not Detected (Not Detect) Acetaminophen < 3 (<30) mcg/mL Ur Barbiturates Screen Not Detected (Not Detect) Ur Phencyclidine Scrn Not Detected (Not Detect) Ur Amphetamines Screen Not Detected (Not Detect) U Benzodiazepines Scrn Not Detected (Not Detect) Urine Cocaine Screen Not Detected (Not Detect) U Marijuana (THC) Screen Not Detected (Not Detect) Ethyl Alcohol 16 mg/dL Influenza Type A (PCR) NEGATIVE (Negative) Influenza Type B (PCR) NEGATIVE (Negative) RSV RNA Qual (PCR) NEGATIVE (Negative) SARS-CoV-2 RNA (RT-PCR) NEGATIVE (Negative) Independent Interpretation I performed an independent interpretation of an: EKG and Plain X-Ray Interpretation: My interpretation is in agreement with the radiologist's impression of this imaging study. EXAMINATION: XR CHEST CLINICAL INFORMATION: Cough COMPARISON: 07/02/2023 TECHNIQUE: 2 views of the chest were obtained. FINDINGS: There is mild elevation of the right hemidiaphragm, slightly increased when compared to prior. No significant abnormality is noted involving the heart, lungs, mediastinum, bony thorax or soft tissues. XR/XR chest 2V IMPRESSION: No acute intrathoracic disease. Mild elevation of right hemidiaphragm. Dictated By: Efraín Marley MD Signed By: Electronically signed by Efraín Marley MD 09/25/23 0840 Vent. Rate: 097 BPM Atrial Rate: 097 BPM P-R Int: 146 ms QRS Dur: 072 ms QT Int: 370 ms P-R-T Axes: 022 -08 005 degrees QTc Int: 469 ms Normal sinus rhythm Minimal voltage criteria for LVH, may be normal variant ( R in aVL ) Cannot rule out Anterior infarct (cited on or before 02-JUL-2023) Abnormal ECG When compared with ECG of 02-JUL-2023 18:44, Nonspecific T wave abnormality no longer evident in Anterior leads Electronically Signed By:JASSI ONOFRE MD Dictated By: Bandar Onofre MD Signed By: Electronically signed by Bandar Onofre MD 09/25/23 0909 Radiology Impression Discussion of test interpretation with radiology: I have reviewed the radiologist's reading. Social Determinants Patient?s care significantly limited by Social Determinants of Health including: Alcoholism and drug addiction in family (patient suffers from alcohol abuse) Critical Care Time Critical Care Time Critical Care Time: Yes Total Critical Care Time: 45 Attestation: I spent 45 minutes of Critical Care Time with this patient. This does not include time spent on separately reported billable procedures. Discharge Plan Discharge Clinical Impression: Alcohol withdrawal, Viral illness Patient Disposition: Home, Self-Care Instructions: Alcohol Withdrawal (DC), Viral Syndrome (ED) Additional Instructions: Follow up with your primary care provider. Return to the emergency department immediately if your symptoms worsen or if you develop any dizziness, shortness of breath, difficulty breathing, chest pain, blurry vision, loss of vision, nausea, vomiting, abdominal pain, fever, chills, back pain, or any other complaints. Prescriptions: New ondansetron 4 mg tablet,disintegrating 4 mg PO Q8H 3 Days Qty: 9 0RF No Action clonidine HCl 0.1 mg Tablet 0.1 mg PO BID Qty: 60 0RF Protocol: Hold for SBP< HOLD for SBP < : 90 disulfiram 250 mg tablet 250 mg PO DAILY Qty: 30 0RF omeprazole 20 mg capsule,delayed release(DR/EC) 20 mg PO DAILY PRN (Reason: Heartburn) acamprosate 333 mg tablet,delayed release (DR/EC) 666 mg PO TID Qty: 180 3RF citalopram [Celexa] 10 mg tablet 10 mg PO DAILY Qty: 30 0RF Rx Instructions: take 1/2 tab daily for 5 days then increase to one tab daily Referrals: [facility] [Provider Group] (Call to establish and follow up with a primary care provider. If you already have a primary care provider, please follow up with them.) [facility] [Provider Group] (Call to establish and follow up with a primary care provider. If you already have a primary care provider, please follow up with them.) [facility] [Provider Group] (Call to establish and follow up with a primary care provider. If you already have a primary care provider, please follow up with them.) Stand Alone Forms: Work/School Release Interventions: ED Discharge Assessment Last Done: 09/25/23 10:34 Print Language: Malay
--- NOTE | 2023-09-25 06:45 | ECG_ITS ---
Test Reason : withdrawal Blood Pressure : / mmHG Vent. Rate : 097 BPM Atrial Rate : 097 BPM P-R Int : 146 ms QRS Dur : 072 ms QT Int : 370 ms P-R-T Axes : 022 -08 005 degrees QTc Int : 469 ms Normal sinus rhythm Minimal voltage criteria for LVH, may be normal variant ( R in aVL ) Cannot rule out Anterior infarct (cited on or before 02-JUL-2023) Abnormal ECG When compared with ECG of 02-JUL-2023 18:44, Nonspecific T wave abnormality no longer evident in Anterior leads Referred By: Claudia Coronado Electronically Signed By:JASSI ONOFRE MD
[2023-09-25 06:49] VITALS: BP 157/97; PULSE 95; RESP 15; TEMP 37; O2SAT 97; BMI 32.2
[2023-09-25] MEDS: 0.9 % Sodium Chloride 1,000 ML 999 ML IV (07:33)
[2023-09-25 07:34] VITALS: BP 146/94; PULSE 89; RESP 20; O2SAT 96
[2023-09-25 07:35] VITALS: BP 146/94; PULSE 89; RESP 14; TEMP 36.8; O2SAT 96
--- NOTE | 2023-09-25 07:36 | PC.NURSE ---
Patient alert and oriented. reports started feeling unwell yesterday at work. Reports sore throat, chest pressure, head pressure and weak and fatigued. Reports 3 or more drinks of etoh daily, patient CIWA 12 provider notified
[2023-09-25 08:04] LABS: MANUAL DIFF FLAG NO
[2023-09-25 08:07] LABS: Basophils Percent Auto 0.1 % (0-2); Eosinophils Absolute Auto 0.1 X10*3/uL (0.0-0.4); Eosinophils Percent Auto 1.4 % (0-4); Hematocrit 36.7 % (37.0-47.0); Hemoglobin 12.2 g/dl (12.0-16.0); Imm Gran Abs Auto 0.03 X10*3/uL (0.00-0.03); Imm Gran Pct Auto 0.4 % (0.0-0.4); Lymphocytes Percent Auto 14.2 % (20-40); Mean Corpuscular HGB Conc 33.2 g/dl (31.0-35.0); Mean Corpuscular Hemoglobin 32.1 pg (27.0-33.0); Mean Corpuscular Volume 96.6 fL (80.0-98.0); Mean Platelet Volume 9.9 fL (9.4-12.3); Monocytes Percent Auto 13.8 % (2-11); Neutrophils Percent Auto 70.1 % (45-73); Platelet Count 181 X10*3/uL (160-400); Red Cell Distribution Width 19.8 % (11.0-16.0); White Blood Count 7.1 X10*3/uL (4.8-10.8)
[2023-09-25 08:22] LABS: Alanine Aminotransferase 46 U/L (0-31); Albumin Level 3.9 g/dL (3.5-5.0); Alkaline Phosphatase 76 U/L (39-117); Anion Gap 15 (12-20); Aspartate Amino Transferase 66 U/L (5-31); Bilirubin Total 0.5 mg/dL (0.0-1.0); Blood Urea Nitrogen 7 mg/dL (9-16); Calcium 8.6 mg/dL (8.4-10.2); Carbon Dioxide 23 mmol/L (22-29); Chloride 104 mmol/L (96-108); Creatinine Clr Calc Pharmacy 117.6; Estimated Glomerular Filt Rate > 60; Ethanol 16 mg/dL; Glucose Random 105 mg/dL (60-115); Potassium 3.6 mmol/L (3.3-5.1); Sodium 138 mmol/L (135-145); Total Protein 7.3 g/dL (6.5-8.0)
[2023-09-25 08:24] LABS: Acetaminophen LAB < 3 mcg/mL (<30); Salicylate < 5.0 mg/dL (15-30)
[2023-09-25 08:42] LABS: Appearance Urine Clear; Color Urine Yellow; Glucose Urine UA Negative (Negative); Leukocyte Esterase Urine Negative (Negative); Nitrite Urine Negative (Negative); Urine Blood Negative (Negative); Urine Ketones Trace mg/dL (Negative); Urine Protein Negative (Neg-Trace)
[2023-09-25 08:44] LABS: UPreg QC Valid YES; Urine Pregnancy NEGATIVE (NEGATIVE)
[2023-09-25] MEDS: PHENobarbitaL sodium 130 MG/ML IM ONCE 255 MG IM (08:46)
[2023-09-25 09:10] LABS: Amphetamine Screen Urine Not Detected (Not Detect); Barbiturates, Urine Not Detected (Not Detect); Benzodiazepines Screen Urine Not Detected (Not Detect); Cannabinoid Screen Urine Not Detected (Not Detect); Cocaine Screen Urine Not Detected (Not Detect); Fentanyl, urine Not Detected (Not Detect); Opiate Screen Urine Not Detected (Not Detect); Phencyclidine Screen Urine Not Detected (Not Detect)
[2023-09-25 09:46] LABS: Influenza A PCR NEGATIVE (Negative); Influenza B PCR NEGATIVE (Negative); Resp Syncy Virus RNA Qual PCR NEGATIVE (Negative); SARS COV2 PCR INHOUSE NEGATIVE (Negative)
[2023-09-25 09:52] VITALS: BP 142/93; PULSE 98; RESP 15; TEMP 37.1; O2SAT 98
[2023-09-25] MEDS: ondansetron HCL 4 MG/2 ML VIAL IVPUSH (10:07)
--- NOTE | 2023-09-25 10:40 | PC.NURSE ---
Discharge plan reviewed with patient who verbalized understanding
--- NOTE | 2023-09-25 11:09 | MHC.RECOVSUP ---
Met with pt in ED11 who is here for EDER. Pt informs she has been drinking about 2 pints and 6 nips a day and has stopped following up with MAT medications. At this time pt is not interested in ATS as they cannot miss work but in September they will have vacation time and could do ATS then. At this time pt plans to get a living coach and wait until they use vacation time for treatment. Pt has no other questions or concerns at this time.
== END 2023-09-25 10:53 | disposition home or self-care (01) ==
PROVIDERS: Physician Assistant Medical; Emergency Provider Emergency Medicine
DX: F10.239 Alcohol dependence with withdrawal, unspecified (principal); Y90.0 Blood alcohol level of less than 20 mg/100 ml; R94.31 Abnormal electrocardiogram [ECG] [EKG]; R50.9 Fever, unspecified; R51.9 Headache, unspecified; R09.89 Other specified symptoms and signs involving the circulatory and respiratory systems; Z20.822 Contact with and (suspected) exposure to COVID-19; Z20.828 Contact with and (suspected) exposure to other viral communicable diseases; Z79.899 Other long term (current) drug therapy
CPT/HCPCS: 0241U; 71046; 80053; 80143; 80179; 80307; 81003; 81025; 85025; 93005; 96361; 96372; 96374; 99284; 99285; J2405; J2560

== ENCOUNTER 2024-04-13 20:17 | Inpatient (IN) | payer OTHER, SELFPAY ==
[2024-04-13 20:26] VITALS: BP 146/103; PULSE 125; RESP 19; TEMP 36.4; O2SAT 96; BMI 32.1
--- NOTE | 2024-04-13 20:27 | ED.ALCOHOL ---
HPI - Alcohol General Chief Complaint: General Medical Stated Complaint: alcohol withdrawal Time Seen by Provider: 04/13/24 21:48 Source: patient Mode of arrival: ambulatory History of Present Illness ED Provider: Dr Card HPI narrative: 53-year-old female who reports significant alcohol use disorder, states that she drinks a lot although she has tried over the past 3 days to drink just enough so that her symptoms are not as bad but states that this has been unsuccessful and she is seeking help with her alcohol dependence. She reports that her last admission for rehab was November of this year. Related Data Home Medications ?Medication ?Instructions ?Recorded ?Confirmed omeprazole 20 mg capsule,delayed 20 mg PO DAILY PRN Heartburn 12/08/21 07/03/23 release Previous Rx's ?Medication ?Instructions ?Recorded clonidine HCl 0.1 mg tablet 0.1 mg PO BID #60 tabs 07/04/23 disulfiram 250 mg tablet 250 mg PO DAILY #30 tabs 07/05/23 acamprosate 333 mg tablet,delayed 666 mg (2 x 333 mg) PO TID #180 07/24/23 release tabs citalopram 10 mg tablet (Celexa) 10 mg PO DAILY #30 tabs 07/24/23 ondansetron 4 mg disintegrating 4 mg PO Q8H 3 days #9 tabs 09/25/23 tablet Allergies Allergy/AdvReac Type Severity Reaction Status Date / Time No Known Allergies Allergy Verified 04/13/24 20:30 Review of Systems Review of Systems: Pertinent positives and negatives as stated in HPI Yes all other systems are reviewed and are negative PMFSH Past Medical History Source: nursing notes reviewed Medical History Alcohol abuse Anemia GERD (gastroesophageal reflux disease) Anxiety Depression Hyperlipidemia Prediabetes Anisocoria Surgical History H/O tubal ligation Family History Family History Father Cancer Mother Arthritis Social History Social History Household Members: Spouse Housing: House Do you presently have visiting nurse or other home services: No Alcohol intake: current Alcohol intake frequency: 3 or more drinks per day Alcohol type: hard liquor Patient Tobacco Use Status: Never used Tobacco Smoked in Last 30 Days: No Second Hand Smoke Exposure: No Use of substances other than those prescribed or required for medical reasons: No Advance Directives: Yes Advance Directives on File: Yes Advance Directives Date on File: 12/06/22 Do you have a plan to hurt others: No Plan service: No Physical Exam ED Vital Signs: Vital Signs - 24 hr 04/13/24 20:26 04/13/24 20:48 04/13/24 21:55 Temperature 97.5 F 98.4 F Pulse Rate 125 H 118 H Respiratory Rate 19 25 H 93 H Blood Pressure 146/103 H 145/100 H 135/82 Pulse Oximetry 96 95 98 Oxygen Delivery Method Room Air Room Air Room Air BMI result Body Mass Index 32.1 VITAL SIGNS: Reviewed. GENERAL: Well developed, well nourished, in no acute distress. HEAD: Normocephalic/atraumatic EYES: PERRLA, EOMI EARS: Ext canals without abnormality NOSE: Nares patent bilateral OROPHARYNX: no oral lesions noted, posterior pharynx clear NECK: Supple, no adenopathy LUNGS: Normal breath sounds. No adventitious sounds or accessory muscle use. SpO2<98> CARDIOVASCULAR: Regular rate and rhythm without noted murmurs ABDOMEN: Soft, non-tender, non-distended with bowel sounds. MUSCULOSKELETAL: No tenderness, deformities, or effusions noted on gross inspection. EXTREMITIES: No cyanosis, clubbing or edema. SKIN: Inspection of the skin reveals no rashes NEUROLOGIC: Alert and oriented x 4. Strength and sensation to light touch were grossly intact x 4. Course Course Course Narrative: This is a rapid medical exam completed by Marjan [employer]ER: Additional HPI, ROS, PE not included below will be deferred to primary provider. Here with alcohol withdrawl. Last drank this afternoon. Unsure of how much she typically drinks per day. Reports nausea, vomiting, hot sweats, tremors. States she has been drinking heavily since 2018 Medical Decision Making Medical Decision Making MDM Narrative: 53-year-old female with history and clinical presentation, DDX: Alcohol withdrawal, dehydration I reviewed all investigations and hematologic indices are negative for leukocytosis/anemia/thrombocytopenia. Chemistry indices are negative for BIANCA/electrolyte derangements and the noted elevated transaminases or likely secondary to patient's use of alcohol. Alcohol -102, CIWA-14 Patient placed on a phenobarbital protocol. 2240: I discussed case with inpatient hospitalist who accepts admission. Differential Diagnosis Differential Diagnoses: The differential diagnosis associated with the presentation includes Please see the discussion above Admission/Observation Consideration of admission/observation: Escalation of care including admission/observation considered Please see the discussion above Consult Healthcare Provider Management of the patient was discussed with: Hospitalist Please see the discussion above Lab Data MDM Lab Attestation statement: I reviewed the patient's lab results. Please see the discussion above 04/13/24 20:43 04/13/24 20:43 Labs: Lab Results 04/13/24 Range/Units 20:43 WBC 6.5 (4.8-10.8) X10*3/uL RBC 4.25 (4.20-5.50) X10*6/uL Hgb 14.3 (12.0-16.0) g/dl Hct 41.2 (37.0-47.0) % MCV 96.9 (80.0-98.0) fL MCH 33.6 H (27.0-33.0) pg MCHC 34.7 (31.0-35.0) g/dl RDW 15.9 (11.0-16.0) % Plt Count 221 (160-400) X10*3/uL MPV 9.9 (9.4-12.3) fL Immature Gran % (Auto) 0.3 (0.0-0.4) % Neut % (Auto) 56.3 (45-73) % Lymph % (Auto) 29.7 (20-40) % Humphreys % (Auto) 10.9 (2-11) % Eos % (Auto) 2.2 (0-4) % Baso % (Auto) 0.6 (0-2) % Lymph # (Auto) 1.9 (1.2-4.9) X10*3/uL Humphreys # (Auto) 0.7 (0.1-1.2) X10*3/uL Eos # (Auto) 0.1 (0.0-0.4) X10*3/uL Baso # (Auto) 0.0 (0.0-0.2) X10*3/uL Abs Immat Gran (auto) 0.02 (0.00-0.03) X10*3/uL Absolute Neuts (auto) 3.7 (2.0-8.3) x10*3/uL Absolute Nucleated RBC 0.000 (0.0-0.012) X10*3/uL Nucleated RBC % (auto) 0.0 (0.0-0.2) /100WBC Sodium 141 (135-145) mmol/L Potassium 3.4 (3.3-5.1) mmol/L Chloride 102 (96-108) mmol/L Carbon Dioxide 24 (22-29) mmol/L Anion Gap 18 (12-20) BUN 6 L (9-16) mg/dL Creatinine 0.77 (0.5-1.4) mg/dL Estim Creat Clear Calc 102.2 Estimated GFR > 60 Random Glucose 153 H (60-115) mg/dL Calcium 9.7 D (8.4-10.2) mg/dL Total Bilirubin 0.8 (0.0-1.0) mg/dL AST 110 H (5-31) U/L ALT 51 H (0-31) U/L Alkaline Phosphatase 105 (39-117) U/L Total Protein 8.4 H (6.5-8.0) g/dL Albumin 4.2 (3.5-5.0) g/dL Ethyl Alcohol 102 mg/dL External Record Review External record reviewed: Outpatient record, Prior outpatient labs and Prior outpatient radiology Social Determinants Patient?s care significantly limited by Social Determinants of Health including: Alcoholism and drug addiction in family Medications Administered Discontinued Medications Generic Name Dose Route Start Last Admin Trade Name Freq PRN Reason Stop Dose Admin Lorazepam 1 mg 04/13/24 20:29 04/13/24 20:37 Lorazepam 1 Mg Tablet PO 04/13/24 20:30 1 mg ONCE ONE Administration Ondansetron HCl 4 mg 04/13/24 20:30 04/13/24 20:37 Ondansetron Odt 4 Mg Tab.Rapdis TRANSLINGU 04/13/24 20:31 4 mg ONCE ONE Administration Critical Care Time Critical Care Time Critical Care Time: Yes Total Critical Care Time: 60 Attestation: I personally attest to this time spent taking care of the patient. Discharge Plan Discharge Clinical Impression: Alcohol intoxication, Alcohol withdrawal, Alcohol use disorder, severe, dependence Patient Disposition: Admitted As Inpatient Prescriptions: No Action clonidine HCl 0.1 mg Tablet 0.1 mg PO BID Qty: 60 0RF Protocol: Hold for SBP< HOLD for SBP < : 90 disulfiram 250 mg tablet 250 mg PO DAILY Qty: 30 0RF ondansetron 4 mg tablet,disintegrating 4 mg PO Q8H 3 Days Qty: 9 0RF omeprazole 20 mg capsule,delayed release(DR/EC) 20 mg PO DAILY PRN (Reason: Heartburn) acamprosate 333 mg tablet,delayed release (DR/EC) 666 mg PO TID Qty: 180 3RF citalopram [Celexa] 10 mg tablet 10 mg PO DAILY Qty: 30 0RF Rx Instructions: take 1/2 tab daily for 5 days then increase to one tab daily Print Language: Setswana
[2024-04-13] MEDS: LORazepam 1 MG TABLET PO (20:37)
[2024-04-13] MEDS: Ondansetron ODT 4 MG TAB.RAPDIS TRANSLINGU (20:37)
[2024-04-13 20:47] LABS: MANUAL DIFF FLAG NO
[2024-04-13 20:48] VITALS: BP 145/100; PULSE 118; RESP 25; TEMP 36.9; O2SAT 95
[2024-04-13 20:49] LABS: Basophils Percent Auto 0.6 % (0-2); Eosinophils Absolute Auto 0.1 X10*3/uL (0.0-0.4); Eosinophils Percent Auto 2.2 % (0-4); Hematocrit 41.2 % (37.0-47.0); Hemoglobin 14.3 g/dl (12.0-16.0); Imm Gran Abs Auto 0.02 X10*3/uL (0.00-0.03); Imm Gran Pct Auto 0.3 % (0.0-0.4); Lymphocytes Absolute Auto 1.9 X10*3/uL (1.2-4.9); Lymphocytes Percent Auto 29.7 % (20-40); Mean Corpuscular HGB Conc 34.7 g/dl (31.0-35.0); Mean Corpuscular Hemoglobin 33.6 pg (27.0-33.0); Mean Corpuscular Volume 96.9 fL (80.0-98.0); Mean Platelet Volume 9.9 fL (9.4-12.3); Monocytes Absolute Auto 0.7 X10*3/uL (0.1-1.2); Monocytes Percent Auto 10.9 % (2-11); Neutrophils Absolute Auto 3.7 x10*3/uL (2.0-8.3); Neutrophils Percent Auto 56.3 % (45-73); Platelet Count 221 X10*3/uL (160-400); Red Blood Count 4.25 X10*6/uL (4.20-5.50); Red Cell Distribution Width 15.9 % (11.0-16.0); White Blood Count 6.5 X10*3/uL (4.8-10.8)
[2024-04-13 21:04] LABS: Alanine Aminotransferase 51 U/L (0-31); Albumin Level 4.2 g/dL (3.5-5.0); Alkaline Phosphatase 105 U/L (39-117); Anion Gap 18 (12-20); Aspartate Amino Transferase 110 U/L (5-31); Bilirubin Total 0.8 mg/dL (0.0-1.0); Blood Urea Nitrogen 6 mg/dL (9-16); Calcium 9.7 mg/dL (8.4-10.2); Carbon Dioxide 24 mmol/L (22-29); Chloride 102 mmol/L (96-108); Creatinine Clr Calc Pharmacy 102.2; Estimated Glomerular Filt Rate > 60; Ethanol 102 mg/dL; Glucose Random 153 mg/dL (60-115); Potassium 3.4 mmol/L (3.3-5.1); Sodium 141 mmol/L (135-145); Total Protein 8.4 g/dL (6.5-8.0)
[2024-04-13 21:55] VITALS: BP 135/82; RESP 93; O2SAT 98
--- NOTE | 2024-04-13 22:58 | PM.IMHP ---
History of Present Illness Date of Service: 04/14/24 Chief Complaint: Alcohol withdrawal This is a 53-year-old female with pertinent history of alcohol use disorder, gastroesophageal reflux disease who presents to the emergency department for evaluation of alcohol withdrawal. Patient states her last drink was on the day of presentation. She has been trying to cut down on her alcohol use for the last 2 days. Patient is anxious, getting jittery and has tremors. No visual, auditory or tactile hallucinations. Patient has never had alcohol withdrawal seizures before. Patient states she is seeking help quit alcohol. She was last in rehab facility in November. No fever, chills, chest discomfort, palpitations, abdominal pain, shortness of breath, changes in urinary or bowel habits. In the emergency department, patient was initiated on phenobarb protocol Review of Systems Constitutional: Constitutional: Reports fatigue and Reports malaise Cardiovascular: Cardiovascular: Reports no additional cardiovascular complaints Respiratory: Respiratory: Reports no additional respiratory complaints Gastrointestinal: Gastrointestinal: Reports no additional gastrointestinal complaints Neurologic: Reports tremor(s) Psychiatric: Psychiatric: Reports anxiety Endocrine: Endocrine: Reports fatigue [facility] Medical History Alcohol abuse Anemia GERD (gastroesophageal reflux disease) Anxiety Depression Hyperlipidemia Prediabetes Anisocoria Family History Father Cancer Mother Arthritis Surgical History H/O tubal ligation Social History Household Members: Spouse, Family and Children Housing: House Do you presently have visiting nurse or other home services: No Alcohol intake: current Alcohol intake frequency: 3 or more drinks per day Alcohol type: hard liquor Patient Tobacco Use Status: Former Tobacco user Smoked in Last 30 Days: No Second Hand Smoke Exposure: No Use of substances other than those prescribed or required for medical reasons: No Have you been hit, kicked, punched, or otherwise hurt by someone within the past year? If so, by whom?: No Do you feel safe in your current relationship?: Yes Is there a partner from a previous relationship who is making you feel unsafe now?: No Are you made to feel afraid or neglected: No Advance Directives: Yes Advance Directives on File: Yes Advance Directives Date on File: 12/06/22 Do you have a plan to hurt others: No Plan Recently lost weight without trying: No Nutrition Risks: No Nutritional Risk Patient : No service: No Meds Allergies Allergy/AdvReac Type Severity Reaction Status Date / Time No Known Allergies Allergy Verified 04/14/24 00:26 Active Medications: Current Medications Sodium Chloride (Ns) 1,000 mls @ 999 mls/hr IV .Q1H1M [facility] Stop: 04/13/24 23:45 Pharmacy Consult (Consult Rx Etoh Phenob Im/Po) 1 each MISCELLANE ONCE PRN; Protocol PRN Reason: Consult order Phenobarbital (Phenobarbital 15 Mg Tablet) 45 mg PO BID [facility] Stop: 04/15/24 21:01 Phenobarbital (Phenobarbital 30 Mg Tablet) 30 mg PO BID [facility] Stop: 04/17/24 21:01 Phenobarbital (Phenobarbital 30 Mg Tablet) 30 mg PO DAILY [facility] Stop: 04/19/24 09:01 Phenobarbital Sodium (Phenobarbital Sodium 130 Mg/Ml Vial Im Q3hx2) 230 mg IM Q3H [facility] Stop: 04/14/24 04:31 Home Medications ?Medication ?Instructions ?Recorded ?Confirmed ?Last Taken ?Type omeprazole 20 mg capsule,delayed 20 mg PO DAILY PRN Heartburn 12/08/21 04/14/24 2 Days Ago History release ~04/12/24 Physical Exam Vital Signs and Narrative: Vital Signs: Last Vital Signs Temp 98.4 F 04/13/24 20:48 Pulse 118 H 04/13/24 20:48 Resp 93 H 04/13/24 21:55 BP 135/82 04/13/24 21:55 Pulse Ox 98 04/13/24 21:55 O2 Del Method Room Air 04/13/24 21:55 BMI result Body Mass Index 32.1 Middle-aged female lying in bed in no distress Neck supple, no JVD Regular rate and rhythm, S1-S2 heard Regular breath sounds bilaterally, no wheezing or crackles appreciated Abdomen soft nontender, no guarding, no rigidity Patient is awake, alert and oriented to self, place, time and person ; no focal motor deficit Psych: Anxious No pedal edema Results Labs 04/13/24 20:43 04/13/24 20:43 Labs: Laboratory Results - last 24 hr 04/13/24 20:43 MCV 96.9 MCH 33.6 H MCHC 34.7 RDW 15.9 Plt Count 221 MPV 9.9 Immature Gran % (Auto) 0.3 Neut % (Auto) 56.3 Lymph % (Auto) 29.7 Patrick % (Auto) 10.9 Eos % (Auto) 2.2 Baso % (Auto) 0.6 Lymph # (Auto) 1.9 Patrick # (Auto) 0.7 Eos # (Auto) 0.1 Baso # (Auto) 0.0 Abs Immat Gran (auto) 0.02 Absolute Neuts (auto) 3.7 Absolute Nucleated RBC 0.000 Nucleated RBC % (auto) 0.0 Anion Gap 18 Estim Creat Clear Calc 102.2 Estimated GFR > 60 Random Glucose 153 H Calcium 9.7 D Total Bilirubin 0.8 AST 110 H ALT 51 H Alkaline Phosphatase 105 Total Protein 8.4 H Albumin 4.2 Ethyl Alcohol 102 Assessment and Plan (1) Alcohol withdrawal: Status: Acute Plan This is a 53-year-old female with pertinent history of alcohol use disorder, gastroesophageal reflux disease who presents to the emergency department for evaluation of alcohol withdrawal. #. Alcohol withdrawal in a patient with alcohol use disorder: Initiated on phenobarb protocol in the ER. Monitor CIWA and initiating thiamine. Consulted Addiction Team #. Gastroesophageal reflux disease: On PPI DVT prophylaxis: Lovenox Full code Admit as inpatient and will require two night minimum hospital stay for treatment of alcohol withdrawal (as above), which is not possible in a lesser acute setting. Quality Stroke Does the patient have a stroke diagnosis?: No VTE Prior VTE?: No VTE Risk Level:: Medical - moderate - high VTE Device Contraindication: Treatment Not Indicated VTE Drug Contraindication: N/A - Med Ordered
[2024-04-13 23:16] LABS: Magnesium 1.7 mg/dL (1.6-2.6)
[2024-04-13] MEDS: PHENobarbitaL sodium 130 MG/ML IM ONCE 306 MG IM (23:17)
[2024-04-13] MEDS: 0.9 % Sodium Chloride 1,000 ML 999 ML IV (23:17)
[2024-04-13] MEDS: Thiamine HCL 100 MG TABLET PO (23:18)
[2024-04-13] MEDS: Enoxaparin Sodium 40 MG/0.4 ML SYRINGE SUBCUT (23:18)
[2024-04-13] MEDS: 0.9 % Sodium Chloride Flush 3 ML SYRINGE IVFLUSH (23:23)
[2024-04-14] VITALS: BP 134/85; PULSE 100; RESP 15; TEMP 37.2; O2SAT 94
[2024-04-14 00:27] VITALS: BP 142/85; PULSE 99; RESP 16; TEMP 36.4; O2SAT 97
[2024-04-14] MEDS: PHENobarbitaL sodium 130 MG/ML VIAL IM Q3Hx2 230 MG IM ×2 (01:24→04:43)
[2024-04-14] MEDS: Zolpidem Tartrate 5 MG TABLET PO ×2 (01:39→22:25)
[2024-04-14 06:16] LABS: MANUAL DIFF FLAG NO
[2024-04-14 06:22] LABS: Basophils Percent Auto 0.5 % (0-2); Eosinophils Absolute Auto 0.1 X10*3/uL (0.0-0.4); Eosinophils Percent Auto 1.8 % (0-4); Hematocrit 37.1 % (37.0-47.0); Hemoglobin 12.4 g/dl (12.0-16.0); Imm Gran Abs Auto 0.03 X10*3/uL (0.00-0.03); Imm Gran Pct Auto 0.5 % (0.0-0.4); Lymphocytes Absolute Auto 1.4 X10*3/uL (1.2-4.9); Lymphocytes Percent Auto 23.1 % (20-40); Mean Corpuscular HGB Conc 33.4 g/dl (31.0-35.0); Mean Corpuscular Hemoglobin 33.2 pg (27.0-33.0); Mean Corpuscular Volume 99.5 fL (80.0-98.0); Monocytes Absolute Auto 0.7 X10*3/uL (0.1-1.2); Monocytes Percent Auto 11.2 % (2-11); Neutrophils Absolute Auto 3.9 x10*3/uL (2.0-8.3); Neutrophils Percent Auto 62.9 % (45-73); Platelet Count 169 X10*3/uL (160-400); Red Blood Count 3.73 X10*6/uL (4.20-5.50); White Blood Count 6.2 X10*3/uL (4.8-10.8)
[2024-04-14 06:35] LABS: Anion Gap 14 (12-20); Blood Urea Nitrogen 7 mg/dL (9-16); Calcium 8.6 mg/dL (8.4-10.2); Carbon Dioxide 25 mmol/L (22-29); Chloride 103 mmol/L (96-108); Creatinine Clr Calc Pharmacy 110.8; Estimated Glomerular Filt Rate > 60; Glucose Random 149 mg/dL (60-115); Potassium 3.3 mmol/L (3.3-5.1); Sodium 139 mmol/L (135-145)
[2024-04-14 06:58] VITALS: BP 126/71; PULSE 106; RESP 16; TEMP 36.6; O2SAT 96
--- NOTE | 2024-04-14 08:05 | PHA.MEDREC ---
Pharmacy Consult ? Medication Reconciliation Pharmacy has completed the medication reconciliation.
[2024-04-14] MEDS: PHENobarbitaL 15 MG TABLET 45 MG PO ×2 (08:19→20:57)
[2024-04-14] MEDS: 0.9 % Sodium Chloride Flush 3 ML SYRINGE IVFLUSH ×3 (08:19→20:58)
[2024-04-14] MEDS: Thiamine HCL 100 MG TABLET PO (08:19)
--- NOTE | 2024-04-14 10:57 | HO.PM.IMPN ---
Subjective Subjective Date of Service: 04/14/24 Interval History: f/u on alcohol withrawal, interval history.. better, no agiataion , no tremors or confusion or seizure Physical Exam Vital Signs: Vital Signs: Last Vital Signs Temp 98 F 04/14/24 06:58 Pulse 106 H 04/14/24 06:58 Resp 16 04/14/24 06:58 BP 126/71 04/14/24 06:58 Pulse Ox 96 04/14/24 06:58 O2 Del Method Room Air 04/14/24 06:58 BMI result Body Mass Index 32.1 General: AO X 3, no acute distress Resp: CTA bilateral CVS: S1,S2,RRR GI: +BS, NT, no distention Skin: No rash Neuro: motor grossly intact Psych: appropriate affect Objective Data Active Medications Acetaminophen (Acetaminophen 325 Mg Tablet) 650 mg PO Q6H PRN PRN Reason: Pain, Mild (Pain Scale 1-3), fever or headache Calcium Carbonate (Calcium Carbonate 750 Mg Tab.Chew) 750 mg PO Q4H PRN PRN Reason: Heartburn Enoxaparin Sodium (Enoxaparin Sodium 40 Mg/0.4 Ml Syringe) 40 mg SUBCUT Q24H [facility] Last Admin: 04/13/24 23:18 Dose: 40 mg Documented By: CHAY Magnesium Hydroxide (Milk Of Magnesia 30 Ml Oral.Susp) 30 ml PO DAILY PRN PRN Reason: Constipation Melatonin (Melatonin 3 Mg Tablet) 6 mg PO BEDTIME PRN PRN Reason: Insomnia Omeprazole (Omeprazole 20 Mg Capsule.Dr) 20 mg PO DAILY PRN PRN Reason: Heartburn Pharmacy Consult (Consult Rx Etoh Phenob Im/Po) 1 each MISCELLANE ONCE PRN; Protocol PRN Reason: Consult order Phenobarbital (Phenobarbital 15 Mg Tablet) 45 mg PO BID [facility] Stop: 04/15/24 21:01 Last Admin: 04/14/24 08:19 Dose: 45 mg Documented By: EVELINE Phenobarbital (Phenobarbital 30 Mg Tablet) 30 mg PO BID [facility] Stop: 04/17/24 21:01 Phenobarbital (Phenobarbital 30 Mg Tablet) 30 mg PO DAILY [facility] Stop: 04/19/24 09:01 Sodium Chloride (0.9 % Sodium Chloride Flush 3 Ml Syringe) [address] [facility] Last Admin: 04/14/24 08:19 Dose: 3 ml Documented By: EVELINE Thiamine HCl (Thiamine Hcl 100 Mg Tablet) 100 mg PO DAILY [facility] Last Admin: 04/14/24 08:19 Dose: 100 mg Documented By: EVELINE Zolpidem Tartrate (Zolpidem Tartrate 5 Mg Tablet) 5 mg PO BEDTIME PRN PRN Reason: Insomnia Last Admin: 04/14/24 01:39 Dose: 5 mg Documented By: PAO Comments: approved Labs 04/14/24 05:22 04/14/24 05:22 Labs: Laboratory Results - last 24 hr 04/13/24 04/14/24 20:43 05:22 MCV 96.9 99.5 H MCH 33.6 H 33.2 H MCHC 34.7 33.4 RDW 15.9 16.0 Plt Count 221 169 MPV 9.9 10.0 Immature Gran % (Auto) 0.3 0.5 H Neut % (Auto) 56.3 62.9 Lymph % (Auto) 29.7 23.1 Barren % (Auto) 10.9 11.2 H Eos % (Auto) 2.2 1.8 Baso % (Auto) 0.6 0.5 Lymph # (Auto) 1.9 1.4 Barren # (Auto) 0.7 0.7 Eos # (Auto) 0.1 0.1 Baso # (Auto) 0.0 0.0 Abs Immat Gran (auto) 0.02 0.03 Absolute Neuts (auto) 3.7 3.9 Absolute Nucleated RBC 0.000 0.000 Nucleated RBC % (auto) 0.0 0.0 Anion Gap 18 14 Estim Creat Clear Calc 102.2 110.8 Estimated GFR > 60 > 60 Random Glucose 153 H 149 H Calcium 9.7 D 8.6 D Magnesium 1.7 Total Bilirubin 0.8 AST 110 H ALT 51 H Alkaline Phosphatase 105 Total Protein 8.4 H Albumin 4.2 Ethyl Alcohol 102 Assessment and Plan (1) Alcohol use disorder, severe, dependence: Status: Acute (2) Alcohol withdrawal: Status: Acute Plan 53-year-old female with pertinent history of alcohol use disorder, gastroesophageal reflux disease who presents to the emergency department for evaluation of alcohol withdrawal. recurrent Alcohol withdrawal with frequent relapses -continue Phenobarb, CIWA, folate, thiamine replacement and addtiction med consult. Abstinence from alcohol discussed again Gastroesophageal reflux disease: On PPI DVT prophylaxis: Lovenox Full code need for inpatient: alcohol withdrawal and IM, PO phenobarbital with frequent assessment of symptoms and med adjustment as needed Quality Stroke Does the patient have a stroke diagnosis?: No VTE Prior VTE?: No VTE Risk Level:: Medical - moderate - high VTE Device Contraindication: Treatment Not Indicated VTE Drug Contraindication: N/A - Med Ordered
--- NOTE | 2024-04-14 11:38 | MHC.CM.PN ---
PATIENT LIVES IN A HOME W/ , ADULT SON, GRANDCHILDREN. FUNCTIONALLY INDEPENDENT. DENIES USE OF SERVICES OR DME. PCP @ [facility] IN [place], CANNOT RECALL NAME OF PROVIDER. COMPLETED HCP AND NAMED [facility] LOYD MARES. COPY PLACED IN CHART AND COPY PROVIDED TO PATIENT. DP: HOME SELF CARE VS RECOVERY TEAM INTERVENTION. PATIENT HAS CAR IN LOT AND PLANS TO TRANSPORT SELF IF SAFE. CM WILL CONTINUE TO FOLLOW.
[2024-04-14] MEDS: Omeprazole 20 MG CAPSULE.DR PO (15:27)
[2024-04-14] MEDS: ondansetron HCL 4 MG/2 ML VIAL IVPUSH (15:27)
[2024-04-14 15:33] VITALS: BP 117/66; PULSE 94; RESP 18; TEMP 36.5; O2SAT 93
--- NOTE | 2024-04-14 18:36 | PC.NURSE ---
Pt complaining of her L arm hurting all day. elbow to shoulder. She did have her IM pheno in that arm. Removed IV from L arm as well. Gave hot packs. MD Short aware. Will cont monitor.
[2024-04-14 19:57] VITALS: BP 130/78; PULSE 97; RESP 20; TEMP 36.6; O2SAT 95
[2024-04-14] MEDS: Enoxaparin Sodium 40 MG/0.4 ML SYRINGE SUBCUT (22:23)
[2024-04-14 23:31] VITALS: BP 129/73; PULSE 100; RESP 16; TEMP 36.6; O2SAT 95
[2024-04-15] MEDS: Acetaminophen 325 MG TABLET 650 MG PO (00:01)
[2024-04-15 07:01] VITALS: BP 123/63; PULSE 78; RESP 16; TEMP 36.6; O2SAT 95
[2024-04-15] MEDS: Thiamine HCL 100 MG TABLET PO (07:50)
[2024-04-15] MEDS: PHENobarbitaL 15 MG TABLET 45 MG PO (07:50)
[2024-04-15] MEDS: 0.9 % Sodium Chloride Flush 3 ML SYRINGE IVFLUSH (07:51)
--- NOTE | 2024-04-15 10:08 | PM.DS ---
DS: Providers Provider Date of Service: 04/15/24 Date of admission: 04/13/24 22:56 Primary care physician: Lakeisha Hyde MD Consults: 04/13/24 22:54 Addiction Medicine Routine Consulting Provider: Addiction Covering Reason for consultation: alcohol use disorder DS: Diagnosis Discharge Diagnosis (1) Alcohol use disorder, severe, dependence: Status: Acute (2) Alcohol withdrawal: Status: Acute DS: Summary Hospital Course Hospital Course: admission hpi Chief Complaint: Alcohol withdrawal This is a 53-year-old female with pertinent history of alcohol use disorder, gastroesophageal reflux disease who presents to the emergency department for evaluation of alcohol withdrawal. Patient states her last drink was on the day of presentation. She has been trying to cut down on her alcohol use for the last 2 days. Patient is anxious, getting jittery and has tremors. No visual, auditory or tactile hallucinations. Patient has never had alcohol withdrawal seizures before. Patient states she is seeking help quit alcohol. She was last in rehab facility in November. No fever, chills, chest discomfort, palpitations, abdominal pain, shortness of breath, changes in urinary or bowel habits. In the emergency department, patient was initiated on phenobarb protocol hospital course The patient presented with a relapse of alcoholism as evidenced by a toxic alcohol level, and was admitted for management of alcohol withdrawal using phenobarbital. During evaluation by addiction medicine, she disclosed consuming over a gallon of vodka daily. She also revealed losing her last job due to testing positive for alcohol while on the job, which she attributed to drinking at home the night prior. 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 Upon being informed that this information might need to be disclosed to authorities due to public safety concerns, the patient felt threatened and eloped from the facility before additional outpatient resources, including psychiatric consultation and follow-up, could be arranged. Despite attempts to reach her by phone, initial efforts were unsuccessful. She later called back, requesting that the antidepressant medication recommended by the psychiatrist be sent to the pharmacy and apologizing for leaving abruptly. After several attempts, I successfully spoke with her over the phone. She reiterated leaving due to safety concerns mentioned earlier. 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 She admitted currently being unemployed and acknowledged fabricating the upcoming high school combination teacher job to seek help for her alcoholism. 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 She alsos stated her suspended license applies nationwide, and operating a school bus requires annual license renewal which she does not have She assured me of her safety and denied any thoughts of self-harm. She once again requested that an antidepressant prescription be sent to the pharmacy. She understood the possibility of safety concerns being reported to authorities. Time Attestation Discharge Coordination Time (in mins): 35 Quality: Safe Use of Opioids Does Pt have an Active Cancer Diagnosis on the Problem List?: No Quality: Stroke Does the patient have a stroke diagnosis?: No Physical Exam Vital Signs: Vital Signs: Last Vital Signs Temp 97.9 F 04/15/24 07:01 Pulse 78 04/15/24 07:01 Resp 16 04/15/24 07:01 BP 123/63 04/15/24 07:01 Pulse Ox 95 04/15/24 07:01 O2 Del Method Room Air 04/15/24 07:01 BMI result Body Mass Index 32.1 General: AO X 3, no acute distress Resp: CTA bilateral CVS: S1,S2,RRR GI: +BS, NT, no distention Skin: No rash Neuro: motor grossly intact Psych: appropriate affect DS: Data Data Completed and Pending Completed studies during hospitalization [Text1]: Procedures Detoxification Services for Substance Abuse Treatment (07/02/23) Discharge Plan Discharge Anticipated Discharge Date/Time: 04/15/24 09:54 Patient Disposition: Left Against Medical Advice Discharge Diagnosis: Alcohol intoxication, Referrals: Lakeisha Hyde MD [Primary Care Provider] - 1 Week Discharge Medications: Continued omeprazole 20 mg capsule,delayed release(DR/EC) 20 mg PO DAILY PRN (Reason: Heartburn) Discharge Orders: Discharge Order (Routine); Ordered 04/15/24 Ordered By: Rc Short Diet: Advance to usual diet Activity on Discharge: As tolerated Stand Alone Forms: Patient Portal Discharge page Print Language: [place] Care Plan Goals: To stay sobber and avoid complication Health Concerns: alcohol dependency Plan of Treatment: avoid alcohol, participate in recovery programs given to you Assessment: see Discharge Date/Time: 04/15/24 15:35
--- NOTE | 2024-04-15 13:14 | MHC.CM.PN ---
Addendum entered by Micaela Gonzalez 04/15/24 15:42: Pt left AMA. Original Note: Pt is medically cleared for discharge home self-care, pt will transport herself home.
--- NOTE | 2024-04-15 13:39 | HO.PM.IMPN ---
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, no sI Physical Exam Vital Signs: Vital Signs: Last Vital Signs Temp 97.9 F 04/15/24 07:01 Pulse 78 04/15/24 07:01 Resp 16 04/15/24 07:01 BP 123/63 04/15/24 07:01 Pulse Ox 95 04/15/24 07:01 O2 Del Method Room Air 04/15/24 07:01 BMI result Body Mass Index 32.1 General: AO X 3, no acute distress Resp: CTA bilateral CVS: S1,S2,RRR GI: +BS, NT, no distention Skin: No rash Neuro: motor grossly intact Psych: appropriate affect Objective Data Active Medications Acetaminophen (Acetaminophen 325 Mg Tablet) 650 mg PO Q6H PRN PRN Reason: Pain, Mild (Pain Scale 1-3), fever or headache Last Admin: 04/15/24 00:01 Dose: 650 mg Documented By: ASAD Calcium Carbonate (Calcium Carbonate 750 Mg Tab.Chew) 750 mg PO Q4H PRN PRN Reason: Heartburn Enoxaparin Sodium (Enoxaparin Sodium 40 Mg/0.4 Ml Syringe) 40 mg SUBCUT Q24H [facility] Last Admin: 04/14/24 22:23 Dose: 40 mg Documented By: BRYAN Magnesium Hydroxide (Milk Of Magnesia 30 Ml Oral.Susp) 30 ml PO DAILY PRN PRN Reason: Constipation Melatonin (Melatonin 3 Mg Tablet) 6 mg PO BEDTIME PRN PRN Reason: Insomnia Omeprazole (Omeprazole 20 Mg Capsule.Dr) 20 mg PO DAILY PRN PRN Reason: Heartburn Last Admin: 04/14/24 15:27 Dose: 20 mg Documented By: EVELINE Ondansetron HCl (Ondansetron Hcl 4 Mg/2 Ml Vial) 4 mg IVPUSH Q8H PRN PRN Reason: Nausea and Vomiting Last Admin: 04/14/24 15:27 Dose: 4 mg Documented By: EVELINE Pharmacy Consult (Consult Rx Etoh Phenob Im/Po) 1 each MISCELLANE ONCE PRN; Protocol PRN Reason: Consult order Phenobarbital (Phenobarbital 15 Mg Tablet) 45 mg PO BID [facility] Stop: 04/15/24 21:01 Last Admin: 04/15/24 07:50 Dose: 45 mg Documented By: LAUREN Phenobarbital (Phenobarbital 30 Mg Tablet) 30 mg PO BID [facility] Stop: 04/17/24 21:01 Phenobarbital (Phenobarbital 30 Mg Tablet) 30 mg PO DAILY [facility] Stop: 04/19/24 09:01 Sodium Chloride (0.9 % Sodium Chloride Flush 3 Ml Syringe) 3 ml IVFLUSH QSHIFT [facility] Last Admin: 04/15/24 07:51 Dose: 3 ml Documented By: LAUREN Thiamine HCl (Thiamine Hcl 100 Mg Tablet) 100 mg PO DAILY [facility] Last Admin: 04/15/24 07:50 Dose: 100 mg Documented By: LAUREN Zolpidem Tartrate (Zolpidem Tartrate 5 Mg Tablet) 5 mg PO BEDTIME PRN PRN Reason: Insomnia Last Admin: 04/14/24 22:25 Dose: 5 mg Documented By: BRYAN Labs 04/14/24 05:22 04/14/24 05:22 Assessment and Plan (1) Alcohol use disorder, severe, dependence: Status: Acute (2) Alcohol withdrawal: Status: Acute Plan 53-year-old female with pertinent history of alcohol use disorder, gastroesophageal reflux disease who presents to the emergency department for evaluation of alcohol withdrawal. recurrent Alcohol withdrawal with frequent relapses -continue Phenobarb, CIWA, folate, thiamine replacement and addtiction med consult. Abstinence from alcohol discussed again Deoressuib--Psych consult Gastroesophageal reflux disease: On PPI DVT prophylaxis: Lovenox Full code need for inpatient: alcohol withdrawal and IM, PO phenobarbital with frequent assessment of symptoms and med adjustment as needed Quality Stroke Does the patient have a stroke diagnosis?: No VTE Prior VTE?: No VTE Risk Level:: Medical - moderate - high VTE Device Contraindication: Treatment Not Indicated VTE Drug Contraindication: N/A - Med Ordered
--- NOTE | 2024-04-15 15:04 | PM.PSYCN ---
History of Present Illness Date of Service: 04/15/2024 Chief Complaint: alcohol withdrawal Reason for Consult: depression;medical management Requesting physician: Rc Short Discussed with referring provider: Yes Sources of Information: patient interviewed and chart reviewed HPI Narrative: Patient is a 53-year-old female with history of alcohol use disorder, gastroesophageal reflux disease who presents to the emergency department for evaluation of alcohol withdrawal. Psychiatric consult placed for: depression; medical management During psychiatric assessment, pt presents alert, oriented, calm and cooperative. Pt reports she has been drinking over a gallon a day of vodka for a number of years ; pt stated, I ball with depression and anxiety. I lost a son, five years ago by suicide. We lost my mother in law and then my son. The drinking increased after they passed . Pt denies hx of inpatient psychiatric admissions. She currently does not have any outpatient psychiatric provider but reports she is interested in referrals. Pt reports hx of multiple detox admissions. denies any other substance use. denies hx of SIB/SA. denies SI/HI/VH/AH. Pt reports she is interested in starting on an antidepressant; discussed risks/benefits of Remeron, pt agreed to trial. Pt educated regarding importance of not drinking alcohol and mixing medications; pt expressed understanding. Past Psychiatric History: denies hx of inpatient psychiatric admissions. pt reports multiple detox admissions. does not have any outpt psychiatric providers. medication trial of citalopram; pt reports she did not go above 10mg and continued to drink alcohol while taking medication. Medical Evaluation Reviewed: Yes Review of Systems Constitutional: Reports as per HPI Eyes: Reports as per HPI Reports as per HPI Cardiovascular: Reports as per HPI Respiratory: Reports as per HPI Gastrointestinal: Reports as per HPI Genitourinary: Reports as per HPI Musculoskeletal: Reports as per HPI Skin/Breast: Reports as per HPI Reports as per HPI Psychiatric: Reports as per HPI Endocrine: Reports as per HPI Hematologic/Lymphatic: Reports as per HPI Allergic/Immunologic: Reports as per HPI PMFSH Medical History Alcohol abuse Anemia GERD (gastroesophageal reflux disease) Anxiety Depression Hyperlipidemia Prediabetes Anisocoria Surgical History H/O tubal ligation Diagnostics Vital Signs (24Hr): Vital Signs - 24 hr 04/14/24 15:33 04/14/24 19:57 04/14/24 23:31 Temperature 97.7 F 97.8 F 97.8 F Pulse Rate 94 97 100 Respiratory Rate 18 20 16 Blood Pressure 117/66 130/78 129/73 Pulse Oximetry 93 95 95 Oxygen Delivery Method Room Air Room Air Room Air 04/15/24 07:01 Temperature 97.9 F Pulse Rate 78 Respiratory Rate 16 Blood Pressure 123/63 Pulse Oximetry 95 Oxygen Delivery Method Room Air BMI result Body Mass Index 32.1 Labs 04/14/24 05:22 04/14/24 05:22 Labs: Laboratory Results - last 48 hr 04/13/24 04/14/24 20:43 05:22 WBC 6.5 6.2 RBC 4.25 3.73 L Hgb 14.3 12.4 Hct 41.2 37.1 MCV 96.9 99.5 H MCH 33.6 H 33.2 H MCHC 34.7 33.4 RDW 15.9 16.0 Plt Count 221 169 MPV 9.9 10.0 Immature Gran % (Auto) 0.3 0.5 H Neut % (Auto) 56.3 62.9 Lymph % (Auto) 29.7 23.1 [place] % (Auto) 10.9 11.2 H Eos % (Auto) 2.2 1.8 Baso % (Auto) 0.6 0.5 Lymph # (Auto) 1.9 1.4 [place] # (Auto) 0.7 0.7 Eos # (Auto) 0.1 0.1 Baso # (Auto) 0.0 0.0 Abs Immat Gran (auto) 0.02 0.03 Absolute Neuts (auto) 3.7 3.9 Absolute Nucleated RBC 0.000 0.000 Nucleated RBC % (auto) 0.0 0.0 Sodium 141 139 Potassium 3.4 3.3 Chloride 102 103 Carbon Dioxide 24 25 Anion Gap 18 14 BUN 6 L 7 L Creatinine 0.77 0.71 Estim Creat Clear Calc 102.2 110.8 Estimated GFR > 60 > 60 Random Glucose 153 H 149 H Calcium 9.7 D 8.6 D Magnesium 1.7 Total Bilirubin 0.8 AST 110 H ALT 51 H Alkaline Phosphatase 105 Total Protein 8.4 H Albumin 4.2 Ethyl Alcohol 102 Medications Medications Current Medications Acetaminophen (Acetaminophen 325 Mg Tablet) 650 mg PO Q6H PRN PRN Reason: Pain, Mild (Pain Scale 1-3), fever or headache Last Admin: 04/15/24 00:01 Dose: 650 mg Calcium Carbonate (Calcium Carbonate 750 Mg Tab.Chew) 750 mg PO Q4H PRN PRN Reason: Heartburn Enoxaparin Sodium (Enoxaparin Sodium 40 Mg/0.4 Ml Syringe) 40 mg SUBCUT Q24H [facility] Last Admin: 04/14/24 22:23 Dose: 40 mg Magnesium Hydroxide (Milk Of Magnesia 30 Ml Oral.Susp) 30 ml PO DAILY PRN PRN Reason: Constipation Melatonin (Melatonin 3 Mg Tablet) 6 mg PO BEDTIME PRN PRN Reason: Insomnia Omeprazole (Omeprazole 20 Mg Capsule.Dr) 20 mg PO DAILY PRN PRN Reason: Heartburn Last Admin: 04/14/24 15:27 Dose: 20 mg Ondansetron HCl (Ondansetron Hcl 4 Mg/2 Ml Vial) 4 mg IVPUSH Q8H PRN PRN Reason: Nausea and Vomiting Last Admin: 04/14/24 15:27 Dose: 4 mg Pharmacy Consult (Consult Rx Etoh Phenob Im/Po) 1 each MISCELLANE ONCE PRN; Protocol PRN Reason: Consult order Phenobarbital (Phenobarbital 15 Mg Tablet) 45 mg PO BID [facility] Stop: 04/15/24 21:01 Last Admin: 04/15/24 07:50 Dose: 45 mg Phenobarbital (Phenobarbital 30 Mg Tablet) 30 mg PO BID [facility] Stop: 04/17/24 21:01 Phenobarbital (Phenobarbital 30 Mg Tablet) 30 mg PO DAILY [facility] Stop: 04/19/24 09:01 Sodium Chloride (0.9 % Sodium Chloride Flush 3 Ml Syringe) 3 ml IVFLUSH QSHIFT [facility] Last Admin: 04/15/24 07:51 Dose: 3 ml Thiamine HCl (Thiamine Hcl 100 Mg Tablet) 100 mg PO DAILY [facility] Last Admin: 04/15/24 07:50 Dose: 100 mg Zolpidem Tartrate (Zolpidem Tartrate 5 Mg Tablet) 5 mg PO BEDTIME PRN PRN Reason: Insomnia Last Admin: 04/14/24 22:25 Dose: 5 mg Allergies Allergies Allergy/AdvReac Type Severity Reaction Status Date / Time No Known Allergies Allergy Verified 04/14/24 00:26 Assessment & Plan Assessment & Plan (1) MDD (major depressive disorder), recurrent episode: Status: Acute Code(s): F33.9 - Major depressive disorder, recurrent, unspecified (2) PTSD (post-traumatic stress disorder): Status: Acute Code(s): F43.10 - Post-traumatic stress disorder, unspecified (3) Alcohol use disorder, severe, dependence: Status: Acute Code(s): F10.20 - Alcohol dependence, uncomplicated Plan Psychiatric consult placed for: depression; medical management During psychiatric assessment, pt presents alert, oriented, calm and cooperative. Pt reports she has been drinking over a gallon a day of vodka for a number of years ; pt stated, I ball with depression and anxiety. I lost a son, five years ago by suicide. We lost my mother in law and then my son. The drinking increased after they passed . Pt denies hx of inpatient psychiatric admissions. She currently does not have any outpatient psychiatric provider but reports she is interested in referrals. Pt reports hx of multiple detox admissions. denies any other substance use. denies hx of SIB/SA. denies SI/HI/VH/AH. Pt reports she is interested in starting on an antidepressant; discussed risks/benefits of Remeron, pt agreed to trial. Pt educated regarding importance of not drinking alcohol and mixing medications; pt expressed understanding. Recommendation: Start: Remeron 15mg PO bedtime referral to outpatient therapist/prescriber pt to discuss alcohol treatment options with Recovery team Total time managing care of this patient today _30___ minutes. Patient educated on: diagnosis, medication risk/benefits, substance abuse and therapeutic strategies Informed Consent: understands
--- NOTE | 2024-04-15 15:35 | PC.NURSE ---
Addendum entered by Carrie Andino RN 04/15/24 18:00: 1730 this rn called pt , she did not answer , 1735 pt called back . This rn spoke to pt , she stated she left because she felt threatened from the information she was told . I asked her if she felt safe at home and she replied yes . made aware . 1800 pt called this rn back again , asking for prescriptions for the meds she was going to take and any information on consults she had . Dr. palomino made aware and states he will call her back. Addendum entered by Carrie Andino RN 04/15/24 17:06: Jesse from security made aware , we also reached out to have security review camera footage . This rn called pt who did not answer , this rn also reached out to spouse , who reports he has not heard from her at this time but would reach out to her and call us if he was in contact with her . nursing document control supervisor made aware of pt elopement . Original Note: this rn received report , i went in to do assessment at 1515 and pt not in room, jamal on the floor , iv in trash . this rn and staff searched unit , no pt found . aware
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
== END 2024-04-15 15:35 | disposition left against medical advice (07) | DRG 770 ==
LOC: HO.ED 22:50 → HO.EDOVER 23:01 → HO.S3 23:36
PROVIDERS: Nurse Practitioner Family; Admitting Provider Student in an Organized Health Care Education/Training Program; Emergency Provider Student in an Organized Health Care Education/Training Program; PCP Internal Medicine; Visit Provider Internal Medicine
DX: F10.239 Alcohol dependence with withdrawal, unspecified (principal); E78.5 Hyperlipidemia, unspecified; F10.229 Alcohol dependence with intoxication, unspecified; K21.9 Gastro-esophageal reflux disease without esophagitis; Y90.5 Blood alcohol level of 100-119 mg/100 ml; Z87.891 Personal history of nicotine dependence
CPT/HCPCS: 36415; 80048; 80053; 80307; 83735; 85025; 99285; J1650; J2405; J2560

== ENCOUNTER → 2024-04-13 22:56 | Outpatient (BNV) | payer OTHER, SELFPAY | PROVIDERS: Admitting Provider Student in an Organized Health Care Education/Training Program; Emergency Provider Student in an Organized Health Care Education/Training Program; Visit Provider Student in an Organized Health Care Education/Training Program | DX: F10.20 Alcohol dependence, uncomplicated (principal); F10.939 Alcohol use, unspecified with withdrawal, unspecified | CPT/HCPCS: 99222; 99232; 99239 ==

== ENCOUNTER → 2024-04-13 22:56 | Outpatient (BNV) | payer OTHER, SELFPAY | PROVIDERS: Admitting Provider Student in an Organized Health Care Education/Training Program; Emergency Provider Student in an Organized Health Care Education/Training Program; PCP Internal Medicine; Visit Provider Nurse Practitioner Psychiatric/Mental Health | DX: F33.2 Major depressive disorder, recurrent severe without psychotic features (principal); F10.20 Alcohol dependence, uncomplicated; F43.11 Post-traumatic stress disorder, acute | CPT/HCPCS: 99232; 99233 ==